=== PATIENT | female | born 1965 | race Two or more races ===

== ENCOUNTER 2016-11-01 07:14 | Inpatient (IN) | payer OTHER ==
[~2016-11-01] VITALS: Ht 182.9 cm; Wt 90.7 kg
[~2016-11-01 07:14] MED LIST: ASPI81TA2 PO; BUPR150T10 PO; ETHY1TAB10 PO; METO25TA PO; ONDA4TAB5 PO; OXYC30TA86 PO; SUMA100T PO; VENL150C58 PO
[2016-11-01] MEDS ORDERED: IV SET PRIMARY 1 EA INFUS.SET MC ONE ×2 (07:47→09:56)
[2016-11-01] MEDS ORDERED: IV NS 0.9% 1,000 ML ONE (07:47)
[2016-11-01] MEDS ORDERED: ALBUTEROL FS 2.5 MG/3 ML VIAL.NEB NEB ONE (08:00)
[2016-11-01] MEDS ORDERED: OSELTAMIVIR PHOSPHATE 75 MG CAPSULE PO ONE (08:00)
[2016-11-01] MEDS ORDERED: IV NS 0.9% 1,000 ML BAG IV ONE ×2 (08:00→10:00)
[2016-11-01] MEDS ORDERED: OSELTAMIVIR PHOSPHATE 75 MG CAPSULE ONE (08:13)
[2016-11-01] MEDS ORDERED: ALBUTEROL FS 2.5 MG/3 ML VIAL.NEB ONE (08:13)
[2016-11-01] MEDS ORDERED: CEFTRIAXONE 1GM BAG (ER ONLY) 50 ML IV ONE ×2 (09:00→09:13)
[2016-11-01] MEDS ORDERED: AZITHROMYCIN 500 MG in IV D5W 250 ML IV ONE (09:00)
[2016-11-01] MEDS ORDERED: IV SET PRIMARY PUMP SET 1 EA INFUS.SET MC ONE ×3 (09:13→09:57)
[2016-11-01 09:23] LABS: BASOPHILS # (AUTO) 0.1 /CMM (0.0-0.2); BASOPHILS % (AUTO) 0.5 % (0.0-2.0); DIFF TOTAL % 100 %; EOSINOPHILS % (AUTO) 0.2 % (0.0-6.0); HEMATOCRIT 34 % (33-45); HEMOGLOBIN 11.2 g/dL (11.5-14.8); LYMPHOCYTES # (AUTO) 0.5 /CMM (0.8-4.8); LYMPHOCYTES % (AUTO) 3.8 % (20.0-44.0); MEAN CORPUSCULAR HEMOGLOBIN 29 PG (26.0-33.0); MEAN CORPUSCULAR HGB CONC 33 g/dl (31.0-36.0); MEAN CORPUSCULAR VOLUME 88 fL (82-100); MONOCYTES # (AUTO) 0.4 /CMM (0.1-1.30); NEUTROPHILS % (AUTO) 92.5 % (43.0-81.0); PLATELET COUNT (AUTO) 223 /CMM (150-450); RED BLOOD CELL COUNT(AUTO) 3.83 MIL/uL (4.0-5.2)
[2016-11-01 09:36] LABS: CALCIUM, SERUM 7.7 mg/dL (8.5-10.1); CREATININE 1.5 mg/dL (0.6-1.3)
[2016-11-01] MEDS ORDERED: TRAZ-144 PO (09:36)
[2016-11-01] MEDS ORDERED: ASPI81TA2 PO (09:36)
[2016-11-01] MEDS ORDERED: HYDR12.55 PO (09:36)
[2016-11-01] MEDS ORDERED: LEVO25TA9 PO (09:36)
[2016-11-01] MEDS ORDERED: BUPR-51 PO (09:36)
[2016-11-01] MEDS ORDERED: CARI350T PO (09:36)
[2016-11-01] MEDS ORDERED: FERR325T28 PO (09:36)
[2016-11-01] MEDS ORDERED: VENL75CA56 PO (09:36)
[2016-11-01] MEDS ORDERED: CHOL100044 PO (09:36)
[2016-11-01] MEDS ORDERED: OXYC40TA57 PO (09:36)
[2016-11-01] MEDS ORDERED: POTASSIUM CL. PREMIX PERIPHER. 200 ML ONE (09:56)
[2016-11-01] MEDS ORDERED: IV NS 0.9% 2,000 ML ONE (09:56)
[2016-11-01] MEDS ORDERED: POTASSIUM CHLORIDE 10 MEQ/50 ML PREMIXED IVPB FOR PERIPHERAL LINE IV ONE (10:00)
[2016-11-01 10:25] LABS: KETONES,URINE Trace (NEGATIVE); LEUKOCYTE ESTERASE ,URINE Negative (NEGATIVE); PH,URINE 5.5 (5.0-8.0)
[2016-11-01 10:27] LABS: ADD UA MICROSCOPIC YES
[2016-11-01 10:29] LABS: LACTIC ACID 3.3 mmol/L (0.4-2.0)
[2016-11-01 10:35] LABS: ADD URINE CULTURE NO
[2016-11-01 11:02] LABS: *LACTIC ACID REFLEX FLAG YES
[2016-11-01] MEDS ORDERED: IV NS 0.9% 1,000 ML IV PRN (11:16)
[2016-11-01 11:26] VITALS: BP 164/101
[2016-11-01] MEDS ORDERED: MAG HYDROX/AL HYDROX/SIMETH 30 ML UDC PO PRN (11:30)
[2016-11-01] MEDS ORDERED: SUMATRIPTAN SUCCINATE 100 MG TABLET PO PRN (11:30)
[2016-11-01] MEDS ORDERED: MAGNESIUM HYDROXIDE 30 ML UDC PO PRN (11:30)
[2016-11-01] MEDS ORDERED: Z GUARD REMEDY 2 OZ OINT TP PRN (11:30)
[2016-11-01] MEDS ORDERED: ONDANSETRON HCL/PF 4 MG/2 ML VIAL IVP PRN (11:30)
[2016-11-01] MEDS: CARISOPRODOL 350 MG TABLET PO SCH ×2 (12:12→17:12)
[2016-11-01] MEDS: FERROUS SULFATE (325 MG) 325 MG/TAB TABLET PO SCH (12:12)
[2016-11-01] MEDS: ASPIRIN 81 MG TAB.CHEW PO SCH (12:12)
[2016-11-01] MEDS: BUPROPION XL 150 MG TAB.ER.24 PO SCH (12:12)
[2016-11-01] MEDS: HYDROCODONE/APAP 5/325MG 1 EACH TABLET PO PRN (12:12)
[2016-11-01] MEDS: PANTOPRAZOLE 40 MG TABLET.DR PO SCH (12:12)
[2016-11-01] MEDS: TRAZODONE 50 MG TABLET PO SCH ×2 (12:16→21:23)
[2016-11-01] MEDS: LEVOTHYROXINE SODIUM 25 MCG TABLET PO SCH (12:16)
[2016-11-01] MEDS: VENLAFAXINE XR 75 MG CAP.SR.24H PO SCH (12:16)
[2016-11-01] MEDS: CHOLECALCIFEROL 1,000 UNIT TABLET (VIT D3) PO SCH (12:17)
[2016-11-01] MEDS: METOPROLOL SUCCINATE 50 MG TAB.SR.24H PO SCH (12:17)
[2016-11-01] MEDS: HYDROCHLOROTHIAZIDE 25 MG TABLET PO SCH (12:17)
[2016-11-01 12:24] LABS: BILIRUBIN,TOTAL 0.2 mg/dL (0.2-1.0)
[2016-11-01] MEDS: oxyCODONE HCL SR 40MG TAB.SR.12H PO SCH ×2 (12:34→21:23)
[2016-11-01] MEDS: ACETAMINOPHEN 325 MG TABLET PO PRN (15:37)
[2016-11-01 16:00] VITALS: BP 132/62
[2016-11-01] MEDS: GUAIFENESIN/D-METHORPHAN HB 5 ML UDC PO PRN (17:12)
[2016-11-01 20:00] VITALS: BP 125/70
[2016-11-01 21:04] VITALS: BP 125/70
[2016-11-02] MEDS ORDERED: IV NS 0.9% 1,000 ML ONE (02:01)
[2016-11-02] MEDS: IV NS 0.9% 1,000 ML IV PRN ×2 (02:05→21:37)
[2016-11-02] MEDS: GUAIFENESIN/D-METHORPHAN HB 5 ML UDC PO PRN ×2 (04:24→20:04)
[2016-11-02] MEDS: oxyCODONE HCL SR 40MG TAB.SR.12H PO SCH ×3 (04:24→21:32)
[2016-11-02 07:16] LABS: BASOPHILS % (AUTO) 0.2 % (0.0-2.0); DIFF TOTAL % 100 %; EOSINOPHILS # (AUTO) 0.3 /CMM (0.0-0.7); EOSINOPHILS % (AUTO) 2.9 % (0.0-6.0); HEMATOCRIT 27 % (33-45); HEMOGLOBIN 9.1 g/dL (11.5-14.8); LYMPHOCYTES # (AUTO) 1.1 /CMM (0.8-4.8); LYMPHOCYTES % (AUTO) 10.5 % (20.0-44.0); MEAN CORPUSCULAR HEMOGLOBIN 30 PG (26.0-33.0); MEAN CORPUSCULAR HGB CONC 34 g/dl (31.0-36.0); MEAN CORPUSCULAR VOLUME 89 fL (82-100); MONOCYTES # (AUTO) 0.5 /CMM (0.1-1.30); MONOCYTES % (AUTO) 4.3 % (2.0-12.0); NEUTROPHILS # (AUTO) 8.6 /CMM (1.8-8.9); NEUTROPHILS % (AUTO) 82.1 % (43.0-81.0); PLATELET COUNT (AUTO) 199 /CMM (150-450); RED BLOOD CELL COUNT(AUTO) 3.08 MIL/uL (4.0-5.2); WHITE BLOOD COUNT (AUTO) 10.5 K/uL (4.3-11.0)
[2016-11-02 07:30] LABS: ALBUMIN 1.9 g/dL (3.4-5.0); BILIRUBIN,TOTAL 0.2 mg/dL (0.2-1.0); CALCIUM, SERUM 7.1 mg/dL (8.5-10.1); CREATININE 1.4 mg/dL (0.6-1.3); PHOSPHORUS 2.6 mg/dL (2.5-4.9); POTASSIUM 3.7 mmol/L (3.5-5.1); TOTAL PROTEIN, SERUM 5.7 g/dL (6.4-8.2)
[2016-11-02 08:00] VITALS: BP 115/89
[2016-11-02] MEDS: AZITHROMYCIN 500 MG in IV D5W 250 ML IV SCH (08:15)
[2016-11-02] MEDS: VENLAFAXINE XR 75 MG CAP.SR.24H PO SCH (08:32)
[2016-11-02] MEDS: CHOLECALCIFEROL 1,000 UNIT TABLET (VIT D3) PO SCH (08:36)
[2016-11-02] MEDS: HYDROCHLOROTHIAZIDE 25 MG TABLET PO SCH (08:36)
[2016-11-02] MEDS: PANTOPRAZOLE 40 MG TABLET.DR PO SCH (08:36)
[2016-11-02] MEDS: CARISOPRODOL 350 MG TABLET PO SCH ×2 (08:37→17:07)
[2016-11-02] MEDS: LEVOTHYROXINE SODIUM 25 MCG TABLET PO SCH (08:39)
[2016-11-02] MEDS: FERROUS SULFATE (325 MG) 325 MG/TAB TABLET PO SCH (08:40)
[2016-11-02] MEDS: METOPROLOL SUCCINATE 50 MG TAB.SR.24H PO SCH (08:40)
[2016-11-02] MEDS: BUPROPION XL 150 MG TAB.ER.24 PO SCH (08:40)
[2016-11-02] MEDS: ASPIRIN 81 MG TAB.CHEW PO SCH (08:41)
[2016-11-02] MEDS: CEFTRIAXONE 1 G in IV D5W 50 ML IV SCH (08:44)
[2016-11-02] MEDS ORDERED: SECONDARY IV SET 1 EA INFUS.SET MC ONE (09:48)
[2016-11-02] MEDS: Magnesium 1GM/D5W 100ML PREMIX 100 ML IV SCH ×4 (11:00→14:00)
[2016-11-02 12:57] VITALS: BP 115/89
[2016-11-02 16:00] VITALS: BP 124/84
[2016-11-02] MEDS: ACETYLCYSTEINE 10% SOLN 400 MG/4 ML VIAL NEB SCH (16:30)
[2016-11-02 20:00] VITALS: BP 136/87
[2016-11-02] MEDS: TRAZODONE 50 MG TABLET PO SCH (21:32)
[2016-11-03] MEDS: ACETYLCYSTEINE 10% SOLN 400 MG/4 ML VIAL NEB SCH ×4 (01:41→19:46)
[2016-11-03] MEDS: oxyCODONE HCL SR 40MG TAB.SR.12H PO SCH ×3 (05:13→20:23)
[2016-11-03] MEDS: LEVOTHYROXINE SODIUM 25 MCG TABLET PO SCH (06:36)
[2016-11-03] MEDS: PANTOPRAZOLE 40 MG TABLET.DR PO SCH (06:36)
[2016-11-03 08:00] VITALS: BP 131/78
[2016-11-03] MEDS: FERROUS SULFATE (325 MG) 325 MG/TAB TABLET PO SCH (08:24)
[2016-11-03] MEDS: ASPIRIN 81 MG TAB.CHEW PO SCH (08:24)
[2016-11-03] MEDS: CARISOPRODOL 350 MG TABLET PO SCH ×2 (08:24→17:15)
[2016-11-03] MEDS: HYDROCHLOROTHIAZIDE 25 MG TABLET PO SCH (08:25)
[2016-11-03] MEDS: BUPROPION XL 150 MG TAB.ER.24 PO SCH (08:25)
[2016-11-03] MEDS: CHOLECALCIFEROL 1,000 UNIT TABLET (VIT D3) PO SCH (08:26)
[2016-11-03] MEDS: VENLAFAXINE XR 75 MG CAP.SR.24H PO SCH (08:27)
[2016-11-03] MEDS: METOPROLOL SUCCINATE 50 MG TAB.SR.24H PO SCH (08:27)
[2016-11-03] MEDS: GUAIFENESIN/D-METHORPHAN HB 5 ML UDC PO PRN ×2 (08:29→20:22)
[2016-11-03] MEDS ORDERED: SECONDARY IV SET 1 EA INFUS.SET MC ONE ×2 (09:58→11:26)
[2016-11-03] MEDS: AZITHROMYCIN 500 MG in IV D5W 250 ML IV SCH (09:58)
[2016-11-03] MEDS: CEFTRIAXONE 1 G in IV D5W 50 ML IV SCH (11:36)
[2016-11-03] MEDS: ACETAMINOPHEN 325 MG TABLET PO PRN (11:38)
[2016-11-03] MEDS: ALBUTEROL FS 2.5 MG/0.5 ML VIAL.NEB NEB SCH ×4 (11:54→22:33)
[2016-11-03 16:00] VITALS: BP 110/68
[2016-11-03] MEDS: IV NS 0.9% 1,000 ML IV PRN (17:15)
[2016-11-03] MEDS: LACTOBACILLUS RHAMNOSUS GG 1 EACH CAP.SPRINK PO SCH (17:15)
[2016-11-03 20:00] VITALS: BP 111/71
[2016-11-03] MEDS: ZOLPIDEM TARTRATE 5 MG TABLET PO PRN (20:22)
[2016-11-03] MEDS: TRAZODONE 50 MG TABLET PO SCH (22:00)
[2016-11-04] MEDS: ACETYLCYSTEINE 10% SOLN 400 MG/4 ML VIAL NEB SCH ×4 (01:30→19:33)
[2016-11-04] MEDS: ALBUTEROL FS 2.5 MG/0.5 ML VIAL.NEB NEB SCH ×6 (03:15→23:19)
[2016-11-04] MEDS: oxyCODONE HCL SR 40MG TAB.SR.12H PO SCH ×3 (05:36→20:17)
[2016-11-04 08:00] VITALS: BP 126/85
[2016-11-04] MEDS: HYDROCHLOROTHIAZIDE 25 MG TABLET PO SCH (08:12)
[2016-11-04] MEDS: CHOLECALCIFEROL 1,000 UNIT TABLET (VIT D3) PO SCH (08:12)
[2016-11-04] MEDS: LACTOBACILLUS RHAMNOSUS GG 1 EACH CAP.SPRINK PO SCH ×2 (08:12→16:34)
[2016-11-04] MEDS: METOPROLOL SUCCINATE 50 MG TAB.SR.24H PO SCH (08:13)
[2016-11-04] MEDS: VENLAFAXINE XR 75 MG CAP.SR.24H PO SCH (08:13)
[2016-11-04] MEDS: PANTOPRAZOLE 40 MG TABLET.DR PO SCH (08:13)
[2016-11-04] MEDS: ASPIRIN 81 MG TAB.CHEW PO SCH (08:13)
[2016-11-04] MEDS: CARISOPRODOL 350 MG TABLET PO SCH ×2 (08:13→16:34)
[2016-11-04] MEDS: LEVOTHYROXINE SODIUM 25 MCG TABLET PO SCH (08:13)
[2016-11-04] MEDS: BUPROPION XL 150 MG TAB.ER.24 PO SCH (08:13)
[2016-11-04] MEDS: FERROUS SULFATE (325 MG) 325 MG/TAB TABLET PO SCH (08:13)
[2016-11-04 08:14] VITALS: BP 126/85
[2016-11-04] MEDS: ZOVIA PO SCH (08:16)
[2016-11-04] MEDS: CEFTRIAXONE 1 G in IV D5W 50 ML IV SCH (08:22)
[2016-11-04] MEDS: AZITHROMYCIN 500 MG in IV D5W 250 ML IV SCH (10:49)
[2016-11-04 16:00] VITALS: BP 163/98
[2016-11-04] MEDS: GUAIFENESIN/D-METHORPHAN HB 5 ML UDC PO PRN (19:12)
[2016-11-04 20:00] VITALS: BP 142/89
[2016-11-04] MEDS: ZOLPIDEM TARTRATE 5 MG TABLET PO PRN (20:15)
[2016-11-04 20:20] VITALS: BP 142/89
[2016-11-04] MEDS: IV NS 0.9% 1,000 ML IV PRN (21:04)
[2016-11-04] MEDS: TRAZODONE 50 MG TABLET PO SCH (21:05)
[2016-11-05] MEDS: ACETYLCYSTEINE 10% SOLN 400 MG/4 ML VIAL NEB SCH ×4 (01:30→19:27)
[2016-11-05] MEDS: ALBUTEROL FS 2.5 MG/0.5 ML VIAL.NEB NEB SCH ×6 (03:19→23:30)
[2016-11-05] MEDS: oxyCODONE HCL SR 40MG TAB.SR.12H PO SCH ×3 (04:42→22:08)
[2016-11-05 08:00] VITALS: BP 139/76
[2016-11-05] MEDS: CHOLECALCIFEROL 1,000 UNIT TABLET (VIT D3) PO SCH (08:21)
[2016-11-05] MEDS: FERROUS SULFATE (325 MG) 325 MG/TAB TABLET PO SCH (08:21)
[2016-11-05] MEDS: ZOVIA PO SCH (08:21)
[2016-11-05] MEDS: CEFTRIAXONE 1 G in IV D5W 50 ML IV SCH (08:21)
[2016-11-05] MEDS: ASPIRIN 81 MG TAB.CHEW PO SCH (08:22)
[2016-11-05] MEDS: LEVOTHYROXINE SODIUM 25 MCG TABLET PO SCH (08:22)
[2016-11-05] MEDS: VENLAFAXINE XR 75 MG CAP.SR.24H PO SCH (08:22)
[2016-11-05] MEDS: PANTOPRAZOLE 40 MG TABLET.DR PO SCH (08:22)
[2016-11-05] MEDS: BUPROPION XL 150 MG TAB.ER.24 PO SCH (08:22)
[2016-11-05] MEDS: LACTOBACILLUS RHAMNOSUS GG 1 EACH CAP.SPRINK PO SCH ×2 (08:22→17:11)
[2016-11-05] MEDS: CARISOPRODOL 350 MG TABLET PO SCH ×2 (08:22→17:11)
[2016-11-05] MEDS: METOPROLOL SUCCINATE 50 MG TAB.SR.24H PO SCH (08:23)
[2016-11-05] MEDS: HYDROCHLOROTHIAZIDE 25 MG TABLET PO SCH (08:23)
[2016-11-05 08:35] VITALS: BP 139/76
[2016-11-05] MEDS: AZITHROMYCIN 500 MG in IV D5W 250 ML IV SCH (10:36)
[2016-11-05] MEDS: IV NS 0.9% 1,000 ML IV PRN (10:37)
[2016-11-05] MEDS: GUAIFENESIN/D-METHORPHAN HB 5 ML UDC PO PRN ×2 (12:34→20:10)
[2016-11-05] MEDS ORDERED: TUBERCULIN,PURIF.PROT.DERIV. 5 TU/0.1 ML VIAL ID ONE (17:00)
[2016-11-05 20:00] VITALS: BP_SYST 132; BP_DIAS 83; BP_DIAS 85
[2016-11-05] MEDS: HYDROCODONE/APAP 5/325MG 1 EACH TABLET PO PRN (20:11)
[2016-11-05] MEDS: TRAZODONE 50 MG TABLET PO SCH (22:08)
[2016-11-06] VITALS (7 sets, daily range): BP systolic 135–148; BP diastolic 85–93
[2016-11-06] MEDS: ACETYLCYSTEINE 10% SOLN 400 MG/4 ML VIAL NEB SCH ×4 (01:30→19:30)
[2016-11-06] MEDS: ALBUTEROL FS 2.5 MG/0.5 ML VIAL.NEB NEB SCH ×6 (03:30→23:25)
[2016-11-06] MEDS: oxyCODONE HCL SR 40MG TAB.SR.12H PO SCH ×3 (05:43→20:12)
[2016-11-06] MEDS: IV NS 0.9% 1,000 ML IV PRN (05:48)
[2016-11-06] MEDS: ZOVIA PO SCH (09:00)
[2016-11-06] MEDS ORDERED: AZITHROMYCIN 250 MG TABLET PO SCH (09:00)
[2016-11-06] MEDS: CEFTRIAXONE 1 G in IV D5W 50 ML IV SCH (09:25)
[2016-11-06] MEDS: CHOLECALCIFEROL 1,000 UNIT TABLET (VIT D3) PO SCH (09:26)
[2016-11-06] MEDS: LACTOBACILLUS RHAMNOSUS GG 1 EACH CAP.SPRINK PO SCH ×2 (09:27→16:05)
[2016-11-06] MEDS: PANTOPRAZOLE 40 MG TABLET.DR PO SCH (09:27)
[2016-11-06] MEDS: ASPIRIN 81 MG TAB.CHEW PO SCH (09:27)
[2016-11-06] MEDS: VENLAFAXINE XR 75 MG CAP.SR.24H PO SCH (09:27)
[2016-11-06] MEDS: CARISOPRODOL 350 MG TABLET PO SCH ×2 (09:28→16:05)
[2016-11-06] MEDS: LEVOTHYROXINE SODIUM 25 MCG TABLET PO SCH (09:28)
[2016-11-06] MEDS: BUPROPION XL 150 MG TAB.ER.24 PO SCH (09:28)
[2016-11-06] MEDS: METOPROLOL SUCCINATE 50 MG TAB.SR.24H PO SCH (09:29)
[2016-11-06] MEDS: HYDROCHLOROTHIAZIDE 25 MG TABLET PO SCH (09:29)
[2016-11-06] MEDS: FERROUS SULFATE (325 MG) 325 MG/TAB TABLET PO SCH (09:31)
[2016-11-06] MEDS: HYDROCODONE/APAP 5/325MG 1 EACH TABLET PO PRN (15:36)
[2016-11-06] MEDS: TRAZODONE 50 MG TABLET PO SCH (22:10)
[2016-11-06] MEDS: ZOLPIDEM TARTRATE 5 MG TABLET PO PRN (22:14)
[2016-11-07] MEDS: ACETYLCYSTEINE 10% SOLN 400 MG/4 ML VIAL NEB SCH ×4 (01:30→19:30)
[2016-11-07] MEDS: ALBUTEROL FS 2.5 MG/0.5 ML VIAL.NEB NEB SCH ×6 (03:30→23:17)
[2016-11-07] MEDS ORDERED: IV NS 0.9% 1,000 ML ONE (05:07)
[2016-11-07] MEDS: IV NS 0.9% 1,000 ML IV PRN (05:15)
[2016-11-07] MEDS: oxyCODONE HCL SR 40MG TAB.SR.12H PO SCH ×3 (05:16→21:21)
[2016-11-07 08:00] VITALS: BP 155/96
[2016-11-07] MEDS: CEFTRIAXONE 2 G in IV D5W 50 ML IV SCH (08:42)
[2016-11-07] MEDS: CHOLECALCIFEROL 1,000 UNIT TABLET (VIT D3) PO SCH (08:43)
[2016-11-07] MEDS: LACTOBACILLUS RHAMNOSUS GG 1 EACH CAP.SPRINK PO SCH ×2 (08:43→16:07)
[2016-11-07] MEDS: FERROUS SULFATE (325 MG) 325 MG/TAB TABLET PO SCH (08:43)
[2016-11-07] MEDS: PANTOPRAZOLE 40 MG TABLET.DR PO SCH (08:44)
[2016-11-07] MEDS: LEVOTHYROXINE SODIUM 25 MCG TABLET PO SCH (08:44)
[2016-11-07] MEDS: VENLAFAXINE XR 75 MG CAP.SR.24H PO SCH (08:44)
[2016-11-07] MEDS: BUPROPION XL 150 MG TAB.ER.24 PO SCH (08:44)
[2016-11-07] MEDS: ASPIRIN 81 MG TAB.CHEW PO SCH (08:44)
[2016-11-07] MEDS: METOPROLOL SUCCINATE 50 MG TAB.SR.24H PO SCH (08:45)
[2016-11-07] MEDS: HYDROCHLOROTHIAZIDE 25 MG TABLET PO SCH (08:45)
[2016-11-07] MEDS: CARISOPRODOL 350 MG TABLET PO SCH ×2 (08:45→16:07)
[2016-11-07] MEDS: ZOVIA PO SCH (08:46)
[2016-11-07 16:00] VITALS: BP_SYST 135; BP_SYST 155; BP_DIAS 88
[2016-11-07] MEDS: HYDROCODONE/APAP 5/325MG 1 EACH TABLET PO PRN (16:02)
[2016-11-07 18:00] VITALS: BP 155/88
[2016-11-07 20:00] VITALS: BP 143/93
[2016-11-07] MEDS: TRAZODONE 50 MG TABLET PO SCH (22:33)
[2016-11-08] MEDS: ACETYLCYSTEINE 10% SOLN 400 MG/4 ML VIAL NEB SCH ×2 (01:30→07:24)
[2016-11-08] MEDS: ALBUTEROL FS 2.5 MG/0.5 ML VIAL.NEB NEB SCH ×3 (03:30→10:43)
[2016-11-08] MEDS: oxyCODONE HCL SR 40MG TAB.SR.12H PO SCH ×2 (05:17→13:00)
[2016-11-08 07:18] LABS: CALCIUM, SERUM 8.3 mg/dL (8.5-10.1); CREATININE 1.3 mg/dL (0.6-1.3); POTASSIUM 4.5 mmol/L (3.5-5.1)
[2016-11-08 07:29] LABS: BASOPHILS % (AUTO) 0.6 % (0.0-2.0); EOSINOPHILS # (AUTO) 0.4 /CMM (0.0-0.7); EOSINOPHILS % (AUTO) 5.3 % (0.0-6.0); HEMATOCRIT 28 % (33-45); HEMOGLOBIN 9.3 g/dL (11.5-14.8); LYMPHOCYTES # (AUTO) 1.8 /CMM (0.8-4.8); LYMPHOCYTES % (AUTO) 26.6 % (20.0-44.0); MEAN CORPUSCULAR HEMOGLOBIN 30 PG (26.0-33.0); MEAN CORPUSCULAR HGB CONC 34 g/dl (31.0-36.0); MEAN CORPUSCULAR VOLUME 87 fL (82-100); MONOCYTES # (AUTO) 0.4 /CMM (0.1-1.30); MONOCYTES % (AUTO) 5.6 % (2.0-12.0); NEUTROPHILS # (AUTO) 4.1 /CMM (1.8-8.9); NEUTROPHILS % (AUTO) 61.9 % (43.0-81.0); PLATELET COUNT (AUTO) 405 /CMM (150-450); RED BLOOD CELL COUNT(AUTO) 3.14 MIL/uL (4.0-5.2); WHITE BLOOD COUNT (AUTO) 6.7 K/uL (4.3-11.0)
[2016-11-08 08:00] VITALS: BP 148/95
[2016-11-08] MEDS: FERROUS SULFATE (325 MG) 325 MG/TAB TABLET PO SCH (08:12)
[2016-11-08] MEDS: ASPIRIN 81 MG TAB.CHEW PO SCH (08:12)
[2016-11-08] MEDS: CARISOPRODOL 350 MG TABLET PO SCH (08:12)
[2016-11-08] MEDS: BUPROPION XL 150 MG TAB.ER.24 PO SCH (08:12)
[2016-11-08] MEDS: VENLAFAXINE XR 75 MG CAP.SR.24H PO SCH (08:13)
[2016-11-08] MEDS: CHOLECALCIFEROL 1,000 UNIT TABLET (VIT D3) PO SCH (08:13)
[2016-11-08 08:14] VITALS: BP 148/95
[2016-11-08] MEDS: LEVOTHYROXINE SODIUM 25 MCG TABLET PO SCH (08:14)
[2016-11-08] MEDS: PANTOPRAZOLE 40 MG TABLET.DR PO SCH (08:14)
[2016-11-08] MEDS: HYDROCHLOROTHIAZIDE 25 MG TABLET PO SCH (08:14)
[2016-11-08] MEDS: METOPROLOL SUCCINATE 50 MG TAB.SR.24H PO SCH (08:14)
[2016-11-08] MEDS: LACTOBACILLUS RHAMNOSUS GG 1 EACH CAP.SPRINK PO SCH (08:15)
[2016-11-08] MEDS: ZOVIA PO SCH (08:19)
[2016-11-08] MEDS: CEFTRIAXONE 2 G in IV D5W 50 ML IV SCH (09:52)
[2016-11-08] MEDS: HYDROCODONE/APAP 5/325MG 1 EACH TABLET PO PRN (11:58)
== END 2016-11-08 16:51 | disposition home or self-care (01) | DRG 871 ==
LOC: ER 07:17 → MED 10:33
PROVIDERS: ADMIT Internal Medicine; ATTEND Internal Medicine
DX: A41.9 Sepsis, unspecified organism (principal); J15.9 Unspecified bacterial pneumonia; N17.0 Acute kidney failure with tubular necrosis; J13 Pneumonia due to Streptococcus pneumoniae; E87.2 Acidosis; N18.4 Chronic kidney disease, stage 4 (severe); G89.29 Other chronic pain; G43.909 Migraine, unspecified, not intractable, without status migrainosus; D64.9 Anemia, unspecified; E66.9 Obesity, unspecified; E83.42 Hypomagnesemia; F32.9 Major depressive disorder, single episode, unspecified; I12.9 Hypertensive chronic kidney disease with stage 1 through stage 4 chronic kidney disease, or unspecified chronic kidney disease; K59.00 Constipation, unspecified; Z86.73 Personal history of transient ischemic attack (TIA), and cerebral infarction without residual deficits; Z87.442 Personal history of urinary calculi; Z90.5 Acquired absence of kidney; Z98.84 Bariatric surgery status; M54.9 Dorsalgia, unspecified; J84.10 Pulmonary fibrosis, unspecified; R65.20 Severe sepsis without septic shock; Z68.27 Body mass index [BMI] 27.0-27.9, adult
CPT/HCPCS: 36415; 71010-TC; 71100-TC; 71250-TC; 80048-TC; 80053-TC; 80061-TC; 81000-TC; 82247-TC; 82248-TC; 83605-TC; 83735-TC; 84100-TC; 85025-TC; 86580-TC; 87040-TC; 87081-TC; 87186-TC; 87400; A4606; J0456; J0696; J3475; J3480; J7030; J7060; Z7610

== ENCOUNTER 2017-10-14 06:00 | Emergency (ER) | payer OTHER ==
[~2017-10-14] VITALS: Ht 182.9 cm; Wt 106.1 kg
[~2017-10-14 06:00] MED LIST changes: +ASPI-1169 PO; -ASPI81TA2 PO; +BUPR-51 PO; -BUPR150T10 PO; +CARI350T PO; +CHOL100044 PO; +FERR325T28 PO; +HYDR12.55 PO; +LEVO25TA9 PO; +METO-356 PO; -METO25TA PO; -OXYC30TA86 PO; +OXYC40TA57 PO; +TRAZ-144 PO; -VENL150C58 PO; +VENL75CA56 PO
--- NOTE | 2017-10-14 06:09 | NUR ---
PT TO ER BED 7. PT BIB RA FOR SYNCOPAL EPISODE, PT STATES SHE HIT THE LEFT SIDE OF HER FACE. PT STATES SHE HASN'T BEEN EATING BECAUSE SHE FELT LIKE SHE GAINED TOO MUCH WEIGHT RECENTLY. FAMILY MEMBER STATES PATIENT HAD A SYNCOPAL EPISODE 2 DAYS AGO WELL. PT PLACED IN A GOWN AND ON SUPERVISOR BLOOMING MILL. VSS/RESP EVEN UNLABORED/NAD NOTED/SKIN WARM AND DRY/DENIES N-V-D/AOX4. AWAITING MD ELLSWORTH.
--- NOTE | 2017-10-14 06:10 | NUR ---
AT BEDSIDE FOR EVAL.
--- NOTE | 2017-10-14 06:20 | NUR ---
18G IV TO L AC X 1 ATTEMPT USING ASEPTIC TECH, BLOOD HANDED OVER TO LAB AT THE BEDSIDE. IV FLUSHES EASILY WITH NS.
--- NOTE | 2017-10-14 06:28 | NUR ---
PT TO CT VIA STETCHER. VSS.
[2017-10-14 06:35] LABS: BASOPHILS % (AUTO) 0.3 % (0.0-2.0); EOSINOPHILS % (AUTO) 0.5 % (0.0-6.0); HEMATOCRIT 38 % (33-45); HEMOGLOBIN 12.5 g/dL (11.5-14.8); LYMPHOCYTES # (AUTO) 1.1 /CMM (0.8-4.8); LYMPHOCYTES % (AUTO) 13.1 % (20.0-44.0); MEAN CORPUSCULAR HEMOGLOBIN 31 PG (26.0-33.0); MEAN CORPUSCULAR HGB CONC 33 g/dl (31.0-36.0); MEAN CORPUSCULAR VOLUME 93 fL (82-100); MONOCYTES # (AUTO) 0.4 /CMM (0.1-1.30); NEUTROPHILS # (AUTO) 7.1 /CMM (1.8-8.9); NEUTROPHILS % (AUTO) 81.1 % (43.0-81.0); PLATELET COUNT (AUTO) 243 /CMM (150-450); RDW COEFFICIENT OF VARIATION 13.1 (11.5-15.0); RED BLOOD CELL COUNT(AUTO) 4.07 MIL/uL (4.0-5.2); WHITE BLOOD COUNT (AUTO) 8.7 K/uL (4.3-11.0)
[2017-10-14 06:54] LABS: INR 0.96 (0.87-1.13)
[2017-10-14] MEDS: IV NS 0.9% 1,000 ML BAG IV ONE (06:54)
--- NOTE | 2017-10-14 06:54 | NUR ---
PT BACK FROM CT.
[2017-10-14 07:01] LABS: ALANINE AMINOTRANSFERASE 16 U/L (12-78); ALKALINE PHOSPHATASE 73 U/L (46-116); ASPARTATE AMINOTRANSFERASE 15 U/L (15-37); BILIRUBIN,DIRECT 0.1 mg/dL (0.0-0.2); BILIRUBIN,TOTAL 0.2 mg/dL (0.2-1.0); CALCIUM, SERUM 8.6 mg/dL (8.5-10.1); CARBON DIOXIDE 24 mmol/L (21-32); CHLORIDE 110 mmol/L (98-107); CREATININE 1.7 mg/dL (0.6-1.3); GLUCOSE 95 mg/dL (74-106); SODIUM SERUM 144 mmol/L (136-145); TOTAL PROTEIN, SERUM 6.9 g/dL (6.4-8.2); UREA NITROGEN, BLOOD 19 mg/dL (7-18)
[2017-10-14 07:07] LABS: TROPONIN I < 0.017 ng/mL (0.00-0.056)
--- NOTE | 2017-10-14 07:36 | NUR ---
Patient discharged to home in stable condition. Written and verbal after care instructions given. Patient verbalizes understanding of instruction. IV removed. Catheter intact and site benign. Pressure and 4x4 applied to site. No bleeding noted. Left in stable condition, assisted to waiting room,.
[2017-10-14 07:38] VITALS: BP 135/72
== END 2017-10-14 07:42 | disposition home or self-care (01) ==
LOC: ER 06:02
DX: R55 Syncope and collapse (principal); R53.1 Weakness; R51 Headache; I10 Essential (primary) hypertension; F32.9 Major depressive disorder, single episode, unspecified; Z90.5 Acquired absence of kidney; Z79.82 Long term (current) use of aspirin
CPT/HCPCS: 36415; 70450; 71010; 80048; 80076; 82962; 84484; 85025; 85730; 93005; 96360; 99285; A4606; J7030 ×2; Z7610

== ENCOUNTER 2020-03-21 15:34 | Emergency (ER) | payer OTHER ==
[~2020-03-21] VITALS: Ht 182.9 cm; Wt 145.6 kg
[~2020-03-21 15:34] MED LIST changes: -METO-356 PO; +METO25TA4 PO; -TRAZ-144 PO; +TRAZ-182 PO
--- NOTE | 2020-03-21 15:34 | NUR ---
PT BIB RA 99 FROM HOME,SLURRED SPEECH,APHASIA AND WEAKNESS STARTED 1500H, PT IS AAOX4, NOT IN RESPIRATORY DISTRESS, HOOKED TO WOODS MANAGER, KEPT RESTED AND COMFORTABLE, WILL CONTINUE TO MONITOR.
--- NOTE | 2020-03-21 15:40 | NUR ---
PT IV LINE ESTABLISHED BLOOD DRAWN AND SENT TO LAB.
--- NOTE | 2020-03-21 15:44 | NUR ---
TECH AT BEDSIDE FOR BLOOD GLUCOSE AND EKG.
--- NOTE | 2020-03-21 15:50 | NUR ---
CODE STROKE ACTIVATED.
--- NOTE | 2020-03-21 15:51 | NUR ---
PT IS WHEELED TO CT SCAN VIA ACLS PROTOCOL.
[2020-03-21 15:58] LABS: BASOPHILS % (AUTO) 0.4 % (0.0-2.0); EOSINOPHILS % (AUTO) 1.4 % (0.0-6.0); HEMATOCRIT 34 % (33-45); HEMOGLOBIN 11.4 g/dL (11.5-14.8); LYMPHOCYTES # (AUTO) 0.8 /CMM (0.8-4.8); LYMPHOCYTES % (AUTO) 7.8 % (20.0-44.0); MEAN CORPUSCULAR HGB CONC 33 g/dl (31.0-36.0); MEAN CORPUSCULAR VOLUME 95 fL (82-100); MONOCYTES # (AUTO) 0.5 /CMM (0.1-1.30); NEUTROPHILS # (AUTO) 8.6 /CMM (1.8-8.9); NEUTROPHILS % (AUTO) 85.4 % (43.0-81.0); PLATELET COUNT (AUTO) 267 /CMM (150-450); RED BLOOD CELL COUNT(AUTO) 3.65 MIL/uL (4.0-5.2)
--- NOTE | 2020-03-21 16:02 | NUR ---
PATIENT BACK FROM CT SCAN, XRAY ALSO DONE.
--- NOTE | 2020-03-21 16:02 | NUR ---
PT IS BACK FROM THE CT SCAN.
[2020-03-21 16:03] LABS: CALCIUM, SERUM 7.4 mg/dL (8.5-10.1); CREATININE 2.3 mg/dL (0.6-1.3); POTASSIUM 3.6 mmol/L (3.5-5.1)
--- NOTE | 2020-03-21 16:08 | NUR ---
DR MEHTA NEURO TELESTROKE FOR EVAL
--- NOTE | 2020-03-21 16:12 | NUR ---
ALTEPLASE VERBALLY ORDERED BY DR MEHTA FROM TELESTROKE. CARRIED OUT IMMEDIATELY
--- NOTE | 2020-03-21 16:15 | NUR ---
PATIENT SIGNED CONSENT FOR TPA
--- NOTE | 2020-03-21 16:16 | NUR ---
ACTIVASE 90MG IN STERIL WATER FOR INJ 90ML: 9MG BOLUS GIVEN OVER 1MIN FOLLOWED BBY 81MG DRIP OVER 60MIN LAC 18G END TIME: 6189
--- NOTE | 2020-03-21 16:17 | NUR ---
Ashley davidson in [facility] - 03/21/20 at 1644 by KIRK PATIENT SIGNED CONSENT FOR TPA
[2020-03-21] MEDS ORDERED: ALTEPLASE 90 MG in WATER FOR INJECTION,STERILE 100 ML IV ONE (16:30)
[2020-03-21] MEDS ORDERED: WATER FOR INJECTION STERILE IV ONE (16:30)
[2020-03-21] MEDS ORDERED: ALTEPLASE 100 MG in WATER FOR INJECTION,STERILE 100 ML IV ONE (16:30)
[2020-03-21] MEDS ORDERED: ALTEPLASE IV ONE (16:30)
[2020-03-21] MEDS ORDERED: ALTEPLASE 100 MG/VIAL VIAL IV ONE (16:30)
--- NOTE | 2020-03-21 16:38 | NUR ---
[facility] TIM MADE AWARE THAT CTA CANNOT BE DONE BEC OF CREATININE 2.3.
--- NOTE | 2020-03-21 16:40 | NUR ---
TECH AT BEDSIDE FOR REPEAT EKG.
--- NOTE | 2020-03-21 16:56 | NUR ---
PATIENT IN BED, AWAKE AND ALERT, HOOKED TO MONITOR, ONGOING TPA AT 81ML/HR, STABLE VITAL SIGNS. HOOKED TO LOCATOR SPECIALIST, WILL CONTINUE TO MONITOR CLOSELY
--- NOTE | 2020-03-21 17:10 | NUR ---
NEURO CHECK DONE, NO CHANGES
--- NOTE | 2020-03-21 17:14 | NUR ---
MADE DR CARLSON AWARE OF BP 165/109MMHG, RECEIVED VERBAL ORDER OF LABETALOL 10MG IVP. CARRIED OUT
[2020-03-21] MEDS ORDERED: LABETALOL HCL IV 100MG VIAL ONE (17:18)
--- NOTE | 2020-03-21 17:23 | NUR ---
Note undone in ED - 03/21/20 at 1737 by KIRK Patient Tranfers to outside Facility. Physician: DR PEARL Location: [facility] Patient picked up by [facility] led by Stefany Rose RN VIVIAN in stable condition. Patient does not complain of headache and no bleeding noted.
[2020-03-21 17:30] VITALS: BP 149/94
[2020-03-21] MEDS ORDERED: LABETALOL 20 MG/4 ML VIAL IV ONE (17:30)
--- NOTE | 2020-03-21 17:32 | NUR ---
Patient Tranfers to outside Facility. Physician: DR PEARL Location: [facility] Patient picked up by [facility] [id number] led by Stefany Rose RN VIVIAN in stable condition,. Per patient, no complaint of headache. No signs of bleeding.
== END 2020-03-21 17:38 | disposition short-term general hospital (02) ==
LOC: ER 15:36
DX: I63.50 Cerebral infarction due to unspecified occlusion or stenosis of unspecified cerebral artery (principal); R79.89 Other specified abnormal findings of blood chemistry; N17.8 Other acute kidney failure; D64.9 Anemia, unspecified; M54.5 Low back pain; G89.29 Other chronic pain; E03.9 Hypothyroidism, unspecified; I10 Essential (primary) hypertension; E66.8 Other obesity; Z68.41 Body mass index [BMI] 40.0-44.9, adult; Z90.5 Acquired absence of kidney; Z98.890 Other specified postprocedural states; Z79.899 Other long term (current) drug therapy; Z79.82 Long term (current) use of aspirin
CPT/HCPCS: 36415; 70450; 71045; 80048; 80061; 82962; 84484; 85025; 85730; 93005 ×2; 96365; 96375; 99285; J2997; J3490 ×2; J7040

== ENCOUNTER 2020-04-12 08:26 | Inpatient (IN) | payer OTHER ==
[~2020-04-12] VITALS: Ht 182.9 cm; Wt 145.1 kg
--- NOTE | 2020-04-12 08:30 | NUR ---
ELLIE HERNANDEZ 99 FROM HOME,MOM CALLED 911 WHEN SHE NOTED THAT PATIENT CAN'T SAY WHAT SHE WANTED TO THIS MORNING,LKW="LAST NIGHT WHEN SHE WENT TO BED". ON ROOM AIR, BREATHING EVENLY AND UNLABORED. CONNECTED TO THE MONITOR AND PULSE OX. KEPT COMFORTABLE, WILL CONTINUE TO MONITOR ACCORDINGLY.
--- NOTE | 2020-04-12 08:44 | NUR ---
code stroke activated;see code stroke form
[2020-04-12] MEDS ORDERED: CT SWABBABLE VALVE TRANS SET 1 EA INFUS.SET MC ONE (08:47)
[2020-04-12] MEDS ORDERED: IOHEXOL-350 100 ML VIAL IV ONE (08:47)
[2020-04-12] MEDS ORDERED: IV NS 0.9% 250 ML IV ONE (08:48)
[2020-04-12 09:03] LABS: BASOPHILS # (AUTO) 0.1 /CMM (0.0-0.2); BASOPHILS % (AUTO) 0.8 % (0.0-2.0); EOSINOPHILS % (AUTO) 0.6 % (0.0-6.0); HEMATOCRIT 35 % (33-45); HEMOGLOBIN 11.3 g/dL (11.5-14.8); LYMPHOCYTES # (AUTO) 0.5 /CMM (0.8-4.8); LYMPHOCYTES % (AUTO) 4.1 % (20.0-44.0); MEAN CORPUSCULAR HGB CONC 32 g/dl (31.0-36.0); MEAN CORPUSCULAR VOLUME 96 fL (82-100); MONOCYTES # (AUTO) 0.5 /CMM (0.1-1.30); MONOCYTES % (AUTO) 3.5 % (2.0-12.0); NEUTROPHILS # (AUTO) 11.6 /CMM (1.8-8.9); PLATELET COUNT (AUTO) 394 /CMM (150-450); RED BLOOD CELL COUNT(AUTO) 3.65 MIL/uL (4.0-5.2); WHITE BLOOD COUNT (AUTO) 12.8 K/uL (4.3-11.0)
[2020-04-12] MEDS ORDERED: OXYC15TA2 PO (09:05)
[2020-04-12] MEDS ORDERED: TIZA4TAB5 PO (09:05)
[2020-04-12] MEDS ORDERED: HYDR-4075 PO (09:05)
[2020-04-12] MEDS ORDERED: BUPR-319 PO (09:05)
[2020-04-12] MEDS ORDERED: OLAN7.5T3 PO (09:05)
[2020-04-12] MEDS ORDERED: CYCL10TA9 PO (09:07)
[2020-04-12] MEDS ORDERED: DOCU100C36 PO (09:07)
[2020-04-12] MEDS ORDERED: ATOR40TA PO (09:07)
--- NOTE | 2020-04-12 09:18 | NUR ---
urine collected and sent to lab
[2020-04-12 09:24] LABS: CALCIUM, SERUM 8.5 mg/dL (8.5-10.1); CREATININE 2.8 mg/dL (0.6-1.3); POTASSIUM 3.8 mmol/L (3.5-5.1)
[2020-04-12 09:46] LABS: ALBUMIN 3.3 g/dL (3.4-5.0); BILIRUBIN,DIRECT 0.1 mg/dL (0.0-0.2); BILIRUBIN,TOTAL 0.2 mg/dL (0.2-1.0); TOTAL PROTEIN, SERUM 7.2 g/dL (6.4-8.2)
[2020-04-12] MEDS ORDERED: ASPIRIN 325 MG TABLET PO ONE (10:00)
[2020-04-12] MEDS ORDERED: ASPIRIN 325 MG TABLET ONE (10:00)
[2020-04-12] MEDS ORDERED: ACETAMINOPHEN 325 MG TABLET PO PRN (10:30)
[2020-04-12] MEDS ORDERED: ONDANSETRON HCL/PF 4 MG/2 ML VIAL IVP PRN (10:30)
[2020-04-12] MEDS ORDERED: MAG HYDROX/AL HYDROX/SIMETH 30 ML UDC PO PRN (10:30)
[2020-04-12] MEDS ORDERED: ASPIRIN 300 MG/SUPP.RECT RC ONE ×2 (10:30→10:36)
[2020-04-12] MEDS ORDERED: Z GUARD REMEDY 2 OZ OINT TP PRN (10:30)
[2020-04-12] MEDS ORDERED: MAGNESIUM HYDROXIDE 30 ML UDC PO PRN (10:30)
--- NOTE | 2020-04-12 10:44 | NUR ---
report given to Adriana GALVAN for adelaida
--- NOTE | 2020-04-12 11:25 | NUR ---
wheeled patient via gurney accompanied by RN and emt in no distress. Adriana RN at bedside to assume care.
[2020-04-12 12:00] VITALS: BP 176/107
[2020-04-12] MEDS ORDERED: BLOOD SUGAR DIAGNOSTIC 1 EACH STRIP IN SCH (12:00)
[2020-04-12] MEDS: BLOOD SUGAR DIAGNOSTIC 1 EACH STRIP IN SCH ×3 (12:06→21:58)
[2020-04-12] MEDS: IV NS 0.9% 1,000 ML IV SCH ×2 (12:06→21:09)
--- NOTE | 2020-04-12 12:08 | NUR ---
SW CONSULT: SW received consult for "Encephalopathy." SW consulted with COLE Wright who stated pt was recently transferred from ER and is not alert or oriented and has limited verbal skills and currently only nodes "yes or no." Per medical chart, code stroke was activate in ER. SW will attempt to see pt at a later time and complete PhQ-9 and provide stroke education.
--- NOTE | 2020-04-12 12:10 | NUR ---
SQUASH CENTRE MANAGEREMAIL MARKETING EXECUTIVE NOTES RECEIVED PT FROM ER DEPT IN A GURNEY, DROWSY. ABLE TO SCOOT TO THE BED, A/O X1, APPEARS CALM. PT TOLERATING RA, WITH NO ACUTE RESPIRATORY DISTRESS NOTED. PT NOT EXHIBITING PAIN OR DISCOMFORT AT THIS TIME. HOOKED TO TELE MONITORING SR 96 WITH OCCASIONAL 1ST DEGREE AVB, DENIES CHEST PAIN. STARTED IVF NS AT 100ML/HR TO L WRIST G20, INTACT AND OPERATIONAL.PT KEPT COMFORTABLE. CALL LIGHT KEPT WITHIN REACH. PT'S BED IN LOWEST, LOCKED POSITION, WITH SRX3. WILL CONTINUE PLAN OF CARE.
[2020-04-12] MEDS: hydrALAZINE HCL 10 MG TABLET PO SCH ×2 (13:00→16:42)
--- NOTE | 2020-04-12 13:06 | NUR ---
SAFETY DEPOSIT BOXES CUSTODIAN NOTES NOTIFIED MD/GA REGARDING NPO STATUS OF PT. IF OKAY TO CHANGE HYDRALAZINE TO IV FORM. AWAITING FOR RESPONSE.
--- NOTE | 2020-04-12 14:30 | NUR ---
GAS DERRICK OPERATOR NOTES PT SEEN AND EVALUATED BY DR. DERAS, PT STILL ALTERED AT THE TIME. MD REPORTED TO RN HE WITNESSED POSSIBLE SEIZURE OF THE PT AND WILL NOTIFY ADMITTING MD/GA. WILL CONTINUE TO MONITOR.
--- NOTE | 2020-04-12 15:40 | NUR ---
MOTTLE LAY UP OPERATOR NOTES PAGED /HARI AND SPOKE TO HIM THROUGH THE PHONE. ORDERED SITTER AND RESTRAINTS IF NEEDED. NO MEDS FOR SEDATION OR RELAXANT AT THIS TIME. BP AT 178/80 HR90, STATED OKAY FOR NOW, NO PRN MEDICINE TO GIVE. ALSO, FOR TROPONIN RESULTED 0.104, NO ORDERS AT THIS TIME. WILL CONTINUE TO MONITOR.
[2020-04-12 16:00] VITALS: BP 154/107
[2020-04-12] MEDS: DOCUSATE SODIUM 100 MG CAPSULE PO SCH (16:45)
[2020-04-12] MEDS: CYCLOBENZAPRINE 10 MG TABLET PO SCH (16:46)
--- NOTE | 2020-04-12 18:41 | NUR ---
VP CORPORATE PARTNERSHIPS NOTES PT REMAINS IN BED, INTERMITTENTLY DOZING OFF, A/O X1, APPEARS CALM. PT TOLERATING RA, WITH NO ACUTE RESPIRATORY DISTRESS NOTED. PT NOT EXHIBITING PAIN OR DISCOMFORT AT THIS TIME. ON TELE MONITORING SR 90 WITH OCCASIONAL 1ST DEGREE AVB, DENIES CHEST PAIN. IVF NS AT 100ML/HR TO LEFT HAND G22, INTACT AND OPERATIONAL. CALL LIGHT KEPT WITHIN REACH. PT'S BED IN LOWEST, LOCKED POSITION, WITH SRX3. WILL ENDORSE TO INCOMING NIGHT NURSE FOR CRISTINA.
--- NOTE | 2020-04-12 19:00 | NUR ---
rotary bar operator opening notes Received Pt from morning nurse. Pt is alert and orientedX1. Pt is resting in bed comfortably. Respiration is normal in room air. No SOB. No S/S of distress noted. Tele monitor showed SR. IV sites at L hand # 22 is clean, intact and infusing well NS@ 100ml/hr. Safety precautions is maintained. Bed at low position, brakes locked, side rails upX2 and call light is within reach. Will continue to monitor.
[2020-04-12 20:00] VITALS: BP 175/115
--- NOTE | 2020-04-12 20:50 | NUR ---
property investor notes Informed and notified ROOSEVELT Alexander regarding Pt's condition. Informed HEMSTITCHING MACHINE OPERATOR that Pt's is restless, BP is 175/115, pulse 106. Pt is alert and orientedX1 and does not follow command. Pt status is NPO. Pt failed bed side nursing swallow eval. IV fluid NS @ 100ml/hr. blood sugar is 79. Sitter at the bedside. HEMSTITCHING MACHINE OPERATOR ordered to keep monitoring restlessness, continue IV fluid, no sedation, neuro consult in am, and HEMSTITCHING MACHINE OPERATOR ordered BP meds PRN trandate IV 10mg/2ml. Order carried out. Charge nurse is aware and informed. Will continue to monitor.
[2020-04-12 21:30] VITALS: BP 177/112
[2020-04-12] MEDS: LABETALOL HCL IV 100MG VIAL IV PRN (21:46)
--- NOTE | 2020-04-12 21:46 | NUR ---
modeling director notes Pt's BP is 177/112. HR 99. Administered Trandate IV 10mg/2 ml PRN as ordered for BP. Pt is connected to heart monitor showed SR. Sitter at the bed side. Will continue to monitor.
[2020-04-12] MEDS: ATORVASTATIN 40 MG TABLET PO SCH (21:59)
[2020-04-12 22:40] VITALS: BP 165/119
--- NOTE | 2020-04-12 23:00 | NUR ---
warper tender notes Pt is incontinence. Bladder scan showed 0 ml. Informed and notified MD. Received order from ROOSEVELT Alexander to insert ruiz catherer.
--- NOTE | 2020-04-12 23:24 | NUR ---
technical specialist notes Inserted ruiz cath 16 fr. Pt tolerated activity well.
[2020-04-13] VITALS: BP 168/106
--- NOTE | 2020-04-13 01:02 | NUR ---
downstairs maid notes Informed and notified ROOSEVELT Alexander regarding NIH stroke scale 2. Charge nurse is aware and informed. No new order received. Will continue monitor.
--- NOTE | 2020-04-13 02:04 | NUR ---
sole stitcher hand notes Pt removed ruiz cath. Pt refused to have ruiz inserted again. Made aware risks and benefits. Pt stated "No!!" Unable to collect UA. Will continue to monitor.
[2020-04-13 04:00] VITALS: BP 169/122
--- NOTE | 2020-04-13 05:20 | NUR ---
small engine technician notes Informed and notified ROOSEVELT Alexander regarding Pt's BP 169/122. pulse is 101. TELEMARKETING SALES REPRESENTATIVE ordered to give Trandate 10 mg/2ml IV push PRN. Charge nurse is aware and informed. Order carried out. Will continue to monitor.
[2020-04-13] MEDS: LABETALOL HCL IV 100MG VIAL IV PRN ×2 (06:08→11:07)
[2020-04-13] MEDS: IV NS 0.9% 1,000 ML IV SCH ×2 (06:11→15:58)
[2020-04-13] MEDS: BLOOD SUGAR DIAGNOSTIC 1 EACH STRIP IN SCH ×4 (06:34→21:20)
[2020-04-13 06:45] LABS: BASOPHILS % (AUTO) 0.3 % (0.0-2.0); EOSINOPHILS % (AUTO) 2.5 % (0.0-6.0); HEMATOCRIT 35 % (33-45); HEMOGLOBIN 11.2 g/dL (11.5-14.8); LYMPHOCYTES # (AUTO) 0.9 /CMM (0.8-4.8); LYMPHOCYTES % (AUTO) 10.2 % (20.0-44.0); MEAN CORPUSCULAR HGB CONC 32 g/dl (31.0-36.0); MEAN CORPUSCULAR VOLUME 95 fL (82-100); MONOCYTES # (AUTO) 0.6 /CMM (0.1-1.30); MONOCYTES % (AUTO) 7.5 % (2.0-12.0); NEUTROPHILS # (AUTO) 6.6 /CMM (1.8-8.9); NEUTROPHILS % (AUTO) 79.5 % (43.0-81.0); PLATELET COUNT (AUTO) 389 /CMM (150-450); RED BLOOD CELL COUNT(AUTO) 3.64 MIL/uL (4.0-5.2); WHITE BLOOD COUNT (AUTO) 8.4 K/uL (4.3-11.0)
--- NOTE | 2020-04-13 06:45 | NUR ---
hose maker notes Pt is resting in bed comfortably. Pt is alert and orientedX1. Respiration is normal in 2 L NC. No SOB. No S/S of distress noted. Sitter at the bedside. Tele monitor showed SR HR at 80 bpm. IV sites at L hand is clean, intact and infusing well NS @ 100ml/hr. Kept Pt clean, dry and comfortable. Safety precautions is maintained. Bed at low position, brakes locked, side rails upX2 and call light is within reach. Will endorse to morning nurse for CRISTINA. Addendum: 04/13/20 at 0657 by SANFORD RADFORD RN hose maker closing notes
[2020-04-13 06:50] LABS: CALCIUM, SERUM 8.5 mg/dL (8.5-10.1); CREATININE 2.1 mg/dL (0.6-1.3); MAGNESIUM 1.6 mg/dL (1.8-2.4); POTASSIUM 3.2 mmol/L (3.5-5.1)
[2020-04-13] MEDS: LEVOTHYROXINE SODIUM 25 MCG TABLET PO SCH (07:30)
--- NOTE | 2020-04-13 07:32 | NUR ---
rn notes patient received on 2L nasal cannula, no sob noted, patient shows no s/s of pain at this time. A/O x 1 and is very much confused at this time. NPO at this time with plans of resuming home medications if patient passes RN swallow eval. L hand 22 with NS @ 100 ml per hour. bed at the lowest setting, call light within reach, side rails up x2. 1;1 sitter at all times.
[2020-04-13] MEDS: Magnesium 1GM/D5W 100ML PREMIX 100 ML IV SCH ×2 (07:50→08:50)
[2020-04-13] MEDS: POTASSIUM CL. PREMIX PERIPHER. 50 ML IV SCH ×4 (07:51→10:48)
[2020-04-13] MEDS: CHOLECALCIFEROL 1,000 UNIT TABLET (VIT D3) PO SCH (08:47)
[2020-04-13] MEDS: VENLAFAXINE XR 75 MG CAP.SR.24H PO SCH (08:47)
[2020-04-13] MEDS: FERROUS SULFATE (325 MG) 325 MG/TAB TABLET PO SCH (08:47)
[2020-04-13] MEDS: ASPIRIN 81 MG TAB.CHEW PO SCH (08:47)
[2020-04-13] MEDS: METOPROLOL SUCCINATE 50 MG TAB.SR.24H PO SCH (08:47)
[2020-04-13] MEDS: DOCUSATE SODIUM 100 MG CAPSULE PO SCH ×2 (08:48→16:02)
[2020-04-13] MEDS: hydrALAZINE HCL 10 MG TABLET PO SCH ×3 (08:48→16:02)
[2020-04-13] MEDS: CYCLOBENZAPRINE 10 MG TABLET PO SCH (08:48)
--- NOTE | 2020-04-13 08:49 | NUR ---
rn notes awaiting for DVT pump machine from central supply
--- NOTE | 2020-04-13 08:55 | NUR ---
rn notes patient able to swallow apple sauce and wants to try clear liquid. Did not want medications at this time because she said she might not be able to swallow them at this time. Agreed to start taking medication for afternoon.
[2020-04-13] MEDS: ENOXAPARIN SODIUM 40 MG/0.4 ML DISP.SYRIN SQ SCH (10:31)
[2020-04-13 13:14] LABS: THYROID STIMULATING HORMONE 1.163 uIU/mL (0.358-3.74)
--- NOTE | 2020-04-13 13:42 | NUR ---
Per Dr. Lundy's request, the Loader Unloader facilitated MPHQ-9 assessment at bedside. Pt is awake, lethargic, and is receptive to speaking with Loader Unloader. Overall MPHQ-9 score is 0. No psych consult needed at this time. Loader Unloader provided post-stroke educational material to the patient. Pt expressed understanding and was agreeable to reading the material provided to her. Loader Unloader engaged pt in conversation regarding home situation. Per pt, she lives at home with her mother and is planning to return home once ready for discharge. Loader Unloader will be available as needed to support pt.
--- NOTE | 2020-04-13 15:24 | NUR ---
rn notes patient has another covid testing done today, oropharyngeal route. sent to lab, signed book and awaiting for results
[2020-04-13] MEDS ORDERED: LORAZEPAM INJ 2 MG/ML VIAL IV PRN (16:00)
[2020-04-13] MEDS: CLOPIDOGREL BISULFATE 75 MG TABLET PO SCH (16:02)
--- NOTE | 2020-04-13 18:16 | NUR ---
rn notes patient remains on 2L nasal cannula, no sob noted, patient does have a high blood pressure but is controlled with medications. A lot less confused as compared to in the morning. Patients MRI brain WO contrast to be done tomorrow. L hand NS @ 100 ml per hour. Potassium replaced, magnesium replaced. DVT pumps are on and working. Patient shows no unilateral weakness, no slurred speech, and no confusion at this time. Bed at the lowest setting, call light within reach, side rails up x2.
[2020-04-13] MEDS: HYDROCODONE/APAP 5/325MG 1 EACH TABLET PO PRN ×2 (18:21→22:02)
--- NOTE | 2020-04-13 19:26 | NUR ---
SWINE NUTRITIONIST: RECEIVED PATIENT Patient in bed, awake, A/O x3. Sinus rhythm in the Tele monitor HR 91. Patient is hyperverbal, supplemental oxygen at 2L NC, denies SOB. C/o headache, received PRN [place] with improvement, plan for MRI Brain wo contrast per Audrey,RN report. IVF infusing. Fall; SKin precaution maintained.
[2020-04-13 20:00] VITALS: BP 136/97
[2020-04-13 20:15] VITALS: BP 136/97
[2020-04-13] MEDS: ATORVASTATIN 40 MG TABLET PO SCH (21:42)
[2020-04-13] MEDS ORDERED: SUMATRIPTAN SUCCINATE 100 MG TABLET ONE (22:16)
[2020-04-13] MEDS: SUMATRIPTAN SUCCINATE 100 MG TABLET PO PRN (23:34)
[2020-04-14] VITALS (7 sets, daily range): BP systolic 138–171; BP diastolic 95–127
[2020-04-14] MEDS: IV NS 0.9% 1,000 ML IV SCH ×3 (01:39→22:59)
[2020-04-14] MEDS: ZOLPIDEM TARTRATE 5 MG TABLET PO PRN ×2 (01:40→23:03)
[2020-04-14] MEDS: BLOOD SUGAR DIAGNOSTIC 1 EACH STRIP IN SCH ×4 (06:16→21:07)
[2020-04-14 06:22] LABS: BASOPHILS % (AUTO) 0.4 % (0.0-2.0); EOSINOPHILS % (AUTO) 3.2 % (0.0-6.0); HEMATOCRIT 35 % (33-45); HEMOGLOBIN 11.3 g/dL (11.5-14.8); LYMPHOCYTES % (AUTO) 12.3 % (20.0-44.0); MEAN CORPUSCULAR HGB CONC 33 g/dl (31.0-36.0); MEAN CORPUSCULAR VOLUME 95 fL (82-100); MONOCYTES # (AUTO) 0.7 /CMM (0.1-1.30); MONOCYTES % (AUTO) 8.9 % (2.0-12.0); NEUTROPHILS # (AUTO) 6.3 /CMM (1.8-8.9); NEUTROPHILS % (AUTO) 75.2 % (43.0-81.0); PLATELET COUNT (AUTO) 387 /CMM (150-450); RED BLOOD CELL COUNT(AUTO) 3.65 MIL/uL (4.0-5.2); WHITE BLOOD COUNT (AUTO) 8.3 K/uL (4.3-11.0)
--- NOTE | 2020-04-14 06:52 | NUR ---
LITHOGRAPHIC RETOUCHER APPRENTICE: END OF SHIFT REPORT Patient in bed, awake, slept well with PRN Ambien. Sinus rhythm in the Tele monitor with HR 83. Headache managed with PRN Imitrex with relief. IVF infusing. Calm and cooperative, compliant with Medication overnight. NIH stroke scale score 0. Plan for MRI Brain, patient is aware. Consent signed in the chart. Will endorse to oncoming RN.
[2020-04-14 07:21] LABS: ALBUMIN 2.9 g/dL (3.4-5.0); BILIRUBIN,TOTAL 0.3 mg/dL (0.2-1.0); CALCIUM, SERUM 8.2 mg/dL (8.5-10.1); MAGNESIUM 1.9 mg/dL (1.8-2.4); PHOSPHORUS 2.6 mg/dL (2.5-4.9); TOTAL PROTEIN, SERUM 6.8 g/dL (6.4-8.2)
--- NOTE | 2020-04-14 07:30 | NUR ---
lumber sorter machine Opening notes Patient is A/O x 4. Patient has no signs of distress and no shortness of breath room air. L hand IV #22 G Saline Lock. Calm and cooperative. Bed is in low settings with side rails up for safety. Call light is within reach. Continue to monitor.
[2020-04-14] MEDS: DOCUSATE SODIUM 100 MG CAPSULE PO SCH ×2 (08:30→17:00)
[2020-04-14] MEDS: VENLAFAXINE XR 75 MG CAP.SR.24H PO SCH (08:32)
[2020-04-14] MEDS: CHOLECALCIFEROL 1,000 UNIT TABLET (VIT D3) PO SCH (08:33)
[2020-04-14] MEDS: FERROUS SULFATE (325 MG) 325 MG/TAB TABLET PO SCH (08:33)
[2020-04-14] MEDS: LEVOTHYROXINE SODIUM 25 MCG TABLET PO SCH (08:34)
[2020-04-14] MEDS: hydrALAZINE HCL 10 MG TABLET PO SCH ×3 (08:34→17:37)
[2020-04-14] MEDS: METOPROLOL SUCCINATE 50 MG TAB.SR.24H PO SCH (08:35)
[2020-04-14] MEDS: ASPIRIN 81 MG TAB.CHEW PO SCH (08:47)
[2020-04-14] MEDS: CLOPIDOGREL BISULFATE 75 MG TABLET PO SCH (08:48)
[2020-04-14] MEDS: ENOXAPARIN SODIUM 40 MG/0.4 ML DISP.SYRIN SQ SCH (08:48)
[2020-04-14] MEDS: MUPIROCIN OINT 2% 22 GM TUBE SCH ×2 (08:57→21:12)
[2020-04-14] MEDS: SUMATRIPTAN SUCCINATE 100 MG TABLET PO PRN (09:32)
--- NOTE | 2020-04-14 18:28 | NUR ---
CATTLE RANCHER Closing Notes Patient is in bed A/O x4. Awake, cooperative and calm. Heart rate 72. L Hand IV #22 G intact and patent infusing 0.9% Normal Saline. Scheduled medications were given. Able to ambulate to the bathroom without difficulty and normal gait. NIH stroke scale score 0. Bed is on low settings side rails up for safety. Call light is within reach. Will endorse to oncoming RN.
--- NOTE | 2020-04-14 19:22 | NUR ---
MS RN: RECEIVED PATIENT Patient in bed, awake, appears calm, sitter was discontinued per COLE Jacques/am Primary nurse. IVF infusing. NIH stroke scale score 0. Pending COvid 19 result, contact isolation MRSA nares. Fall precaution maintained.
[2020-04-14] MEDS: HYDROCODONE/APAP 5/325MG 1 EACH TABLET PO PRN (20:23)
[2020-04-14] MEDS: ATORVASTATIN 40 MG TABLET PO SCH (21:10)
[2020-04-15 06:12] LABS: BASOPHILS % (AUTO) 0.3 % (0.0-2.0); EOSINOPHILS % (AUTO) 3.7 % (0.0-6.0); HEMATOCRIT 34 % (33-45); HEMOGLOBIN 10.8 g/dL (11.5-14.8); LYMPHOCYTES # (AUTO) 1.1 /CMM (0.8-4.8); LYMPHOCYTES % (AUTO) 13.7 % (20.0-44.0); MEAN CORPUSCULAR HGB CONC 32 g/dl (31.0-36.0); MEAN CORPUSCULAR VOLUME 96 fL (82-100); MONOCYTES # (AUTO) 0.7 /CMM (0.1-1.30); MONOCYTES % (AUTO) 8.8 % (2.0-12.0); NEUTROPHILS # (AUTO) 5.9 /CMM (1.8-8.9); NEUTROPHILS % (AUTO) 73.5 % (43.0-81.0); PLATELET COUNT (AUTO) 395 /CMM (150-450)
[2020-04-15 06:22] LABS: CALCIUM, SERUM 8.1 mg/dL (8.5-10.1); CREATININE 1.9 mg/dL (0.6-1.3); POTASSIUM 3.9 mmol/L (3.5-5.1)
[2020-04-15] MEDS: BLOOD SUGAR DIAGNOSTIC 1 EACH STRIP IN SCH ×4 (06:29→22:33)
--- NOTE | 2020-04-15 06:34 | NUR ---
MS RN: END OF SHIFT REPORT Patient in bed, adequate oxygenation on room air. Slept well with PRN Ambien. Headache managed with PRN [place]. IVF infusing. Calm and cooperative, compliant with Medication. NIH stroke scale score 0. Will endorse to oncoming RN.
[2020-04-15 07:30] VITALS: BP 158/110
--- NOTE | 2020-04-15 08:00 | NUR ---
MS RN Opening notes Patient is A/O x 4. Patient has no signs of distress and no shortness of breath room air. L hand IV #22 G Saline Lock. Calm and cooperative. Bed is in low settings with side rails up for safety. Call light is within reach. Continue to monitor.
[2020-04-15] MEDS: DOCUSATE SODIUM 100 MG CAPSULE PO SCH ×2 (09:00→17:00)
[2020-04-15] MEDS: VENLAFAXINE XR 75 MG CAP.SR.24H PO SCH (09:10)
[2020-04-15] MEDS: METOPROLOL SUCCINATE 50 MG TAB.SR.24H PO SCH (09:12)
[2020-04-15] MEDS: CHOLECALCIFEROL 1,000 UNIT TABLET (VIT D3) PO SCH (09:13)
[2020-04-15] MEDS: hydrALAZINE HCL 10 MG TABLET PO SCH ×3 (09:13→17:43)
[2020-04-15] MEDS: FERROUS SULFATE (325 MG) 325 MG/TAB TABLET PO SCH (09:13)
[2020-04-15] MEDS: LEVOTHYROXINE SODIUM 25 MCG TABLET PO SCH (09:13)
[2020-04-15] MEDS: ASPIRIN 81 MG TAB.CHEW PO SCH (09:13)
[2020-04-15] MEDS: HYDROCODONE/APAP 5/325MG 1 EACH TABLET PO PRN ×2 (09:14→17:45)
[2020-04-15] MEDS: IV NS 0.9% 1,000 ML IV SCH ×2 (09:15→22:33)
[2020-04-15] MEDS: ENOXAPARIN SODIUM 40 MG/0.4 ML DISP.SYRIN SQ SCH (09:15)
[2020-04-15] MEDS: MUPIROCIN OINT 2% 22 GM TUBE SCH ×2 (09:25→21:02)
[2020-04-15] MEDS: AMLODIPINE BESYLATE 5 MG TABLET PO SCH (11:17)
[2020-04-15 16:00] VITALS: BP 157/107
--- NOTE | 2020-04-15 19:05 | NUR ---
RN NOTES: RECEIVED AWAKE ON BED, A/OX4, VERY PLEASANT PERSONALITY,WITH IVF ONGOING OF NS AT 100ML/HR, CANNULA INTACT ON RH G#22; SHE IS AMBULATORY, SKIN IS INTACT, CONTINENT BOTH BOWEL AND BLADDER, ORIENTED TO UNIT AND STAFF, FALL, SAFETY AND ASPIRATION PRECAUTION OBSERVED.KEPT CALL LIGHT WITHIN EASY REACH. Addendum: 04/16/20 at 0033 by JOE REEVES RN ADDITIONAL NOTES: PATIENT IS POSITIVE FOR MRSA OF THE NARES, OBSERVED CONTACT PRECAUTION.
--- NOTE | 2020-04-15 19:53 | NUR ---
PT RESTING IN BED WITH PAIN MGT EFFECTIVE FOR HEADACHE.PT AMBULATED WITH P.T. ALONG THE HALLWAY TOLERATING WELL WELL.CALL LIGHT PLACED WITHIN REACH.
[2020-04-15 20:00] VITALS: BP 165/84
--- NOTE | 2020-04-15 21:00 | NUR ---
RN NOTES: RECEIVED CALL FROM HCP([facility])-SPOKE WITH KARRIE F/U IF PATIENT WILL BE DISCHARGE TOMORROW, OF TODAY NO PLANS YET, INSTRUCT TO FOLLOW UP IN THE MORNING.
[2020-04-15] MEDS: ATORVASTATIN 40 MG TABLET PO SCH (22:17)
--- NOTE | 2020-04-15 22:34 | NUR ---
RN NOTES: BLOOD SUGAR CHECK-65, NO INSULIN PER SCALE, TAKING GOOD ORALLY,GIVEN ORANGE JUICE, IVF COMPLETED, NEW BAG ON NS ATRTED AT 100 ML/HR VIA INFUSSION PUMP, WILL CONTINUE TO MONITOR FOR SIGN OF HYPER/HYPOGLYCEMIA.
--- NOTE | 2020-04-16 06:23 | NUR ---
RN NOTES: PATIENT IS STILL ASLEEP,NO PAIN OR DISCOMFORT, NON LABORED BREATHING, REQUEST TO TEMPORARILY STOP THE IVF IN ORDER FOR HER TO TAKE A NAP, TO RESUME WHEN SHE IS AWAKE, SHE IS TAKING FLUIDS ORALLY, KEPT ON CLOSE WATCH, CALL LIGHT WITHIN EASY REACH.FOR LAB TEST THIS MORNING, FOR RD F/U ON 04/18/20.ENDORSED FOR CONTINUITY OF CARE.
[2020-04-16 06:38] LABS: BASOPHILS % (AUTO) 0.3 % (0.0-2.0); CALCIUM, SERUM 8.5 mg/dL (8.5-10.1); CREATININE 1.9 mg/dL (0.6-1.3); EOSINOPHILS % (AUTO) 4.1 % (0.0-6.0); HEMATOCRIT 33 % (33-45); HEMOGLOBIN 10.9 g/dL (11.5-14.8); LYMPHOCYTES # (AUTO) 1.2 /CMM (0.8-4.8); LYMPHOCYTES % (AUTO) 14.8 % (20.0-44.0); MEAN CORPUSCULAR HGB CONC 33 g/dl (31.0-36.0); MEAN CORPUSCULAR VOLUME 95 fL (82-100); MONOCYTES # (AUTO) 0.7 /CMM (0.1-1.30); MONOCYTES % (AUTO) 8.1 % (2.0-12.0); NEUTROPHILS # (AUTO) 5.8 /CMM (1.8-8.9); NEUTROPHILS % (AUTO) 72.7 % (43.0-81.0); PLATELET COUNT (AUTO) 354 /CMM (150-450); POTASSIUM 4.1 mmol/L (3.5-5.1)
[2020-04-16] MEDS ORDERED: AMLO5TAB9 PO (07:42)
[2020-04-16] MEDS ORDERED: METO50TA7 PO (07:42)
[2020-04-16 08:00] VITALS: BP 161/107
--- NOTE | 2020-04-16 08:00 | NUR ---
MS RN NOTES: PATIENT IS AWAKE,NO PAIN OR DISCOMFORT, NON LABORED BREATHING ON ROOM AIR, REQUEST TO TEMPORARILY STOP THE IVF IN ORDER FOR HER TO TAKE A NAP, TO RESUME WHEN SHE IS AWAKE, SHE IS TAKING FLUIDS ORALLY,DENIES ANY PAIN OR DISTRESS. KEPT ON CLOSE WATCH, CALL LIGHT WITHIN EASY REACH.
[2020-04-16] MEDS: DOCUSATE SODIUM 100 MG CAPSULE PO SCH (09:00)
[2020-04-16] MEDS: BLOOD SUGAR DIAGNOSTIC 1 EACH STRIP IN SCH (09:18)
[2020-04-16] MEDS: ASPIRIN 81 MG TAB.CHEW PO SCH (09:19)
[2020-04-16] MEDS: CHOLECALCIFEROL 1,000 UNIT TABLET (VIT D3) PO SCH (09:19)
[2020-04-16] MEDS: AMLODIPINE BESYLATE 5 MG TABLET PO SCH (09:21)
[2020-04-16 09:22] VITALS: BP 161/107
[2020-04-16] MEDS: FERROUS SULFATE (325 MG) 325 MG/TAB TABLET PO SCH (09:22)
[2020-04-16] MEDS: LEVOTHYROXINE SODIUM 25 MCG TABLET PO SCH (09:22)
[2020-04-16] MEDS: METOPROLOL SUCCINATE 50 MG TAB.SR.24H PO SCH (09:22)
[2020-04-16] MEDS: VENLAFAXINE XR 75 MG CAP.SR.24H PO SCH (09:23)
[2020-04-16] MEDS: ENOXAPARIN SODIUM 40 MG/0.4 ML DISP.SYRIN SQ SCH (09:23)
[2020-04-16] MEDS: MUPIROCIN OINT 2% 22 GM TUBE SCH (09:34)
--- NOTE | 2020-04-16 11:00 | NUR ---
DISCHARGED PT HOME VIA PRIVATE CAR-PICKED UP BY HER BROTHER.WITH PRESCRIPTIONS SENT TO [facility] IN [place].IV H/L REMOVED TO LT HAND WITH NO BLEEDING OR SWELLING NOTED.WITH STABLE V/S.AMB AD LINUS.
[2020-04-16] MEDS ORDERED: hydrALAZINE HCL 25 MG TABLET PO SCH (13:00)
== END 2020-04-16 11:00 | disposition home or self-care (01) | DRG 682 ==
LOC: ER 08:29 → TELE 11:07 → MED 04-14 12:12
PROVIDERS: ADMIT Family Medicine; ATTEND Family Medicine
DX: N17.0 Acute kidney failure with tubular necrosis (principal); G92 Toxic encephalopathy; I21.A1 Myocardial infarction type 2; E44.1 Mild protein-calorie malnutrition; I12.9 Hypertensive chronic kidney disease with stage 1 through stage 4 chronic kidney disease, or unspecified chronic kidney disease; N18.9 Chronic kidney disease, unspecified; E87.6 Hypokalemia; F41.9 Anxiety disorder, unspecified; F32.9 Major depressive disorder, single episode, unspecified; E83.42 Hypomagnesemia; E78.5 Hyperlipidemia, unspecified; G89.4 Chronic pain syndrome; G43.909 Migraine, unspecified, not intractable, without status migrainosus; I25.2 Old myocardial infarction; D72.829 Elevated white blood cell count, unspecified; E03.9 Hypothyroidism, unspecified; Z98.84 Bariatric surgery status; Z90.5 Acquired absence of kidney; Z87.442 Personal history of urinary calculi; Z86.73 Personal history of transient ischemic attack (TIA), and cerebral infarction without residual deficits; Z79.899 Other long term (current) drug therapy; Z79.82 Long term (current) use of aspirin; N20.0 Calculus of kidney; Z82.49 Family history of ischemic heart disease and other diseases of the circulatory system
CPT/HCPCS: 36415; 70450-TC; 70551-TC; 71045-TC; 80048-TC; 80053-TC; 80061-TC; 80076-TC; 80305; 82728-TC; 82962-TC; 83540-TC; 83605-TC; 83735-TC; 83880; 84100-TC; 84439-TC; 84443-TC; 84484-TC; 85025-TC; 85385-TC; 85730-TC; 87081-TC; 92507-TC; 92521; 92611-TC; 93307-TC; 97110-TC; 97116-TC; 97530-TC; G0378; J1650; J2060; J3475; J3480; J3490; J7030; J7040; J7050; Q9967; U0003-CS

== ENCOUNTER 2021-05-19 19:46 | Emergency (ER) | payer SELFPAY ==
[~2021-05-19] VITALS: Ht 182.9 cm; Wt 145.1 kg
[~2021-05-19 19:46] MED LIST changes: +AMLO-212 PO; +ATOR40TA PO; +BUPR-319 PO; -BUPR-51 PO; -CARI350T PO; +CYCL10TA9 PO; +DOCU100C36 PO; -ETHY1TAB10 PO; +HYDR-4075 PO; -METO25TA4 PO; +METO50TA7 PO; +OLAN7.5T3 PO; -OXYC40TA57 PO; +TIZA4TAB5 PO
--- NOTE | 2021-05-19 19:55 | NUR ---
PATIENT BIBRA99 FROM HOME FOR SYNCOPAL EPISODE +ORTHO ON SCENE. KADI LOC, KADI HIT TO THE HEAD. PATIENT IS A/O X 4, RR EVEN AND UNLABORED, NO SIGNS OF SOB NOTED. PATIENT CONNCETED TO ANTICHECKING IRON WORKER.
[2021-05-19] MEDS: IV NS 0.9% 1,000 ML BAG IV ONE (20:13)
--- NOTE | 2021-05-19 20:22 | NUR ---
Patient does not wish to proceed with medical care recommended by Dr. BOWMAN. Patient given information related to possible complications, up to and including , which could occur as a result of leaving the hospital at this time. Patient verbalizes understanding of risks involved due to leaving against medical advice. Patient has signed AMA form.
[2021-05-19 20:27] VITALS: BP 105/61
== END 2021-05-19 20:28 | disposition left against medical advice (07) ==
LOC: ER 19:47
DX: R55 Syncope and collapse (principal); R42 Dizziness and giddiness; I10 Essential (primary) hypertension; G89.29 Other chronic pain; F32.9 Major depressive disorder, single episode, unspecified; Z98.890 Other specified postprocedural states; Z79.899 Other long term (current) drug therapy; Z79.82 Long term (current) use of aspirin
CPT/HCPCS: 82962; 93005; 96360; 99283; J7030

== ENCOUNTER 2021-05-24 14:16 | Emergency (ER) | payer BC ==
[~2021-05-24] VITALS: Ht 182.9 cm; Wt 147.4 kg
[2021-05-24] MEDS ORDERED: oxyCODONE/APAP (5/325 MG) 1 UDTAB TABLET ONE ×2 (15:02→17:06)
[2021-05-24] MEDS: oxyCODONE/APAP (5/325 MG) 1 UDTAB TABLET PO ONE (15:12)
--- NOTE | 2021-05-24 15:12 | NUR ---
BAND SAWMILL OPERATOR AT BEDSIDE FOR EVAL.
--- NOTE | 2021-05-24 16:21 | NUR ---
CONTACTED HARMONY NAVARRO OF DR. WHIPPLE TO CALL US BACK.
--- NOTE | 2021-05-24 17:06 | NUR ---
RAMON BAKER SPEAKING WITH DR. BOWMAN.
[2021-05-24] MEDS ORDERED: OXYC-128 PO (17:18)
--- NOTE | 2021-05-24 17:19 | NUR ---
DR. BOWMAN AT BEDSIDE EXPLAINING ACI TO THE PATIENT.
--- NOTE | 2021-05-24 18:20 | NUR ---
CD IMAGES PROVIDED. DEMOND WRAP APPLIED ON RIGHT LEG AND RIGHT ANKLE. CRUTCHES PROVIDED PER ORTHOPEDICS RECOMMENDATION. Patient discharged to home in stable condition. Written and verbal after care instructions given. Patient verbalizes understanding of instruction.
--- NOTE | 2021-05-24 18:24 | NUR ---
PATIENT ASSISTED VIA WHEELCHAIR TO THE CAR, PICKED UP BY BROTHER.
[2021-05-24 18:25] VITALS: BP 136/94
== END 2021-05-24 18:26 | disposition home or self-care (01) ==
LOC: ER 14:18
DX: S82.491A Other fracture of shaft of right fibula, initial encounter for closed fracture (principal); S80.01XA Contusion of right knee, initial encounter; I10 Essential (primary) hypertension; F32.9 Major depressive disorder, single episode, unspecified; M54.9 Dorsalgia, unspecified; G89.29 Other chronic pain; Z98.890 Other specified postprocedural states; Z79.82 Long term (current) use of aspirin; Z79.899 Other long term (current) drug therapy; W18.39XA Other fall on same level, initial encounter; Y93.89 Activity, other specified; Y92.89 Other specified places as the place of occurrence of the external cause; Y99.8 Other external cause status
CPT/HCPCS: 73564-TC; 73590-TC; 73630-TC

== ENCOUNTER 2023-03-01 11:49 | Emergency (ER) | payer BC ==
[~2023-03-01] VITALS: Ht 172.7 cm; Wt 93.0 kg
--- NOTE | 2023-03-01 11:59 | NUR ---
PT DOESNOT WANT TO LAY DOWN HER, SHE WANTS TO STAY ON THE WHEEL CHAIR. PAIN STARTED 3WEEKS AGO NO HX OF TRAUMA,NOR OTHER SIGN AND SYMPTOMS. WENT TO SEE HER MD WAS GIVEN NORCO, AND AWAITS FOR CT SCAN PTC, PAIN STARTED TO BE UNBEARABLE THUS WENT TO ER. MD MADE AWARE.
--- NOTE | 2023-03-01 12:00 | NUR ---
AT BEDSIDE FOR EVAL
[2023-03-01] MEDS ORDERED: HYDROCODONE/APAP 10/325MG TABLET ONE (12:18)
--- NOTE | 2023-03-01 12:20 | NUR ---
PT AWAY AT CT
[2023-03-01] MEDS ORDERED: HYDROCODONE/APAP 10/325MG TABLET PO ONE (12:30)
--- NOTE | 2023-03-01 12:30 | NUR ---
PT BACK FROM CT
[2023-03-01] MEDS ORDERED: HYDR-3980 PO (14:03)
[2023-03-01 14:10] VITALS: BP 148/98
== END 2023-03-01 14:12 | disposition home or self-care (01) ==
LOC: ER 11:55
DX: M17.12 Unilateral primary osteoarthritis, left knee (principal); I10 Essential (primary) hypertension; M54.50 Low back pain, unspecified; G89.29 Other chronic pain; F32.A Depression, unspecified; Z98.890 Other specified postprocedural states; Z79.899 Other long term (current) drug therapy; Z79.82 Long term (current) use of aspirin
CPT/HCPCS: 73700-TC

== ENCOUNTER 2024-06-24 08:11 | Inpatient (IN) | payer BC ==
[~2024-06-24] VITALS: Ht 182.9 cm; Wt 158.8 kg
[~2024-06-24 08:11] MED LIST changes: +HYDR-3980 PO
--- NOTE | 2024-06-24 08:45 | NUR ---
RN NOTES RIGHT ARM ULTRASOUND PERFORMED TO IDENTIFY ADEQUATE VEIN FOR MIDLINE INSERTION. RIGHT ARM PREPPED USING STERILE TECHNIQUE. POWERGLIDE 18G/10CM WAS INSERTED AT RIGHT BASILIC VEIN WITH EASE, GOOD NON PULSATILE BLOOD RETURN AND SECURED WITH INTERLOCK DEVICE. DRESSED USING NORMAL STERILE FASHION. EACH PORT WAS ASPIRATED WITH VENOUS BLOOD AND EACH PORT WAS FLUSHED WITH 10ML OF NORMAL SALINE. PROCEDURE WELL TOLERATED BY THE PT. SUPERVISED BY DR.EM HAWTHORNE PhD. ENDORSED TO BEDSIDE COLE CARTAGENA.
[2024-06-24 08:46] LABS: BASOPHILS # (AUTO) 0.1 K/uL (0.0-0.2); BASOPHILS % (AUTO) 0.7 % (0.0-2.0); EOSINOPHILS % (AUTO) 0.5 % (0.0-6.0); HEMATOCRIT 45 % (33-45); HEMOGLOBIN 14.6 g/dL (11.5-14.8); LYMPHOCYTES # (AUTO) 1.6 K/uL (0.8-4.8); LYMPHOCYTES % (AUTO) 14.9 % (20.0-44.0); MEAN CORPUSCULAR HEMOGLOBIN 30 PG (26.0-33.0); MEAN CORPUSCULAR HGB CONC 32 g/dl (31.0-36.0); MEAN CORPUSCULAR VOLUME 92 fL (82-100); MONOCYTES # (AUTO) 0.8 K/uL (0.1-1.30); MONOCYTES % (AUTO) 7.2 % (2.0-12.0); NEUTROPHILS # (AUTO) 8.1 K/uL (1.8-8.9); NEUTROPHILS % (AUTO) 76.7 % (43.0-81.0); PLATELET COUNT (AUTO) 319 K/uL (150-450); RED BLOOD CELL COUNT(AUTO) 4.89 MIL/uL (4.0-5.2); RED CELL DISTRIBUTION WIDTH 15.5 % (11.5-15.0); WHITE BLOOD COUNT (AUTO) 10.6 K/uL (4.3-11.0)
[2024-06-24] MEDS ORDERED: ONDANSETRON HCL/PF 4 MG/2 ML VIAL ONE (08:46)
[2024-06-24] MEDS ORDERED: DILTIAZEM HCL 25 MG IV ONE (08:47)
[2024-06-24] MEDS: DILTIAZEM HCL 50 MG IV IV ONE (08:50)
[2024-06-24] MEDS: ONDANSETRON HCL/PF - ER 4 MG/2 ML VIAL IV ONE (08:51)
[2024-06-24 09:03] LABS: ALCOHOL, BLOOD < 3 mg/dL (0-10)
[2024-06-24 09:04] LABS: CALCIUM, SERUM 10.4 mg/dL (8.5-10.1); CARBON DIOXIDE 21 mmol/L (21-32); CHLORIDE 103 mmol/L (98-107); CREATININE 1.7 mg/dL (0.6-1.3); GLUCOSE 102 mg/dL (74-106); SODIUM SERUM 139 mmol/L (136-145); UREA NITROGEN, BLOOD 16 mg/dL (7-18)
[2024-06-24 09:15] LABS: LACTIC ACID 2.2 mmol/L (0.4-2.0)
--- NOTE | 2024-06-24 09:16 | NUR ---
move sheet submitted admit: weakness, afib, stable, tele
[2024-06-24 09:18] LABS: INR 1.11 (0.91-1.10); PARTIAL THROMBOPLASTIN TIME 24.8 SEC (24.3-34.3); PROTHROMBIN TIME 11.7 SECS (9.2-11.1)
[2024-06-24 09:20] LABS: ALANINE AMINOTRANSFERASE 20 U/L (12-78); ALBUMIN 3.4 g/dL (3.4-5.0); ALKALINE PHOSPHATASE 257 U/L (46-116); ASPARTATE AMINOTRANSFERASE 13 U/L (15-37); BILIRUBIN,DIRECT 0.2 mg/dL (0.0-0.2); BILIRUBIN,TOTAL 0.5 mg/dL (0.2-1.0); TOTAL PROTEIN, SERUM 7.7 g/dL (6.4-8.2)
--- NOTE | 2024-06-24 09:20 | NUR ---
contacted nurse sup for bed assignment
[2024-06-24] MEDS ORDERED: ACETAMINOPHEN 325 MG TABLET PO PRN (09:30)
[2024-06-24] MEDS ORDERED: MAG HYDROX/AL HYDROX/SIMETH 30 ML UDC PO PRN (09:30)
[2024-06-24] MEDS ORDERED: MORPHINE SULFATE INJ 2 MG/ML DISP.SYRIN IV PRN (09:30)
[2024-06-24] MEDS ORDERED: hydrALAZINE HCL IV 20 MG VIAL IV PRN (09:30)
[2024-06-24] MEDS ORDERED: ASPIRIN 325 MG TABLET ONE (09:38)
[2024-06-24] MEDS ORDERED: RIVA10TA PO (09:40)
[2024-06-24] MEDS ORDERED: NIFE60TA73 PO (09:40)
[2024-06-24] MEDS ORDERED: SPIR25TA6 PO (09:40)
[2024-06-24] MEDS ORDERED: ALLO100T PO (09:40)
[2024-06-24] MEDS ORDERED: BUPR-96 PO (09:40)
[2024-06-24] MEDS ORDERED: CHOL12502 PO (09:40)
[2024-06-24] MEDS ORDERED: METO-357 PO (09:40)
[2024-06-24] MEDS ORDERED: SEMA1PEN SQ (09:40)
[2024-06-24] MEDS ORDERED: AMIT10TA6 PO (09:40)
[2024-06-24] MEDS ORDERED: OXYC20TA42 PO (09:40)
[2024-06-24] MEDS ORDERED: FLEC50TA2 PO (09:40)
[2024-06-24] MEDS: ASPIRIN 325 MG TABLET PO ONE (09:45)
[2024-06-24] MEDS: IV NS 0.9% 1,000 ML BAG IV ONE (10:00)
[2024-06-24] MEDS ORDERED: CEFTRIAXONE 1GM BAG (ER ONLY) 50 ML IV ONE (10:03)
[2024-06-24] MEDS: CEFTRIAXONE 1GM BAG (ER ONLY) 1 GM/50 ML PIGGYBACK IV ONE (10:04)
--- NOTE | 2024-06-24 10:19 | NUR ---
report given to Nayana GALVAN to continue plan of care.
--- NOTE | 2024-06-24 11:06 | NUR ---
wheeled patient via gurney accompanied by RN and emt in no distress. RN assigned at bedside to assume care.
[2024-06-24 12:00] VITALS: BP 137/72; TEMP 98.2; O2SAT 96
[2024-06-24 12:10] LABS: THYROID STIMULATING HORMONE 1.52 uIU/mL (0.358-3.74)
[2024-06-24] MEDS: oxyCODONE IR immediate release 5 MG TABLET PO SCH (14:17)
[2024-06-24] MEDS: ONDANSETRON HCL/PF 4 MG/2 ML VIAL IVP PRN (14:21)
--- NOTE | 2024-06-24 14:30 | NUR ---
SOCIAL MEDIA MARKETING ANALYST NOTE MEDICATION VITAMIN D WAS CALLED IN TO PHARMACY MEDICATION IS NOT IN CASSETTE OR OMNCELL MEDICATION PENDING ARRIVAL BY PHARMACIST
--- NOTE | 2024-06-24 14:53 | NUR ---
SPECIAL PROCEDURES TECHNOLOGIST NOTE MEDICATION FOR NAUSEA WAS ADMINISTERED TO PATIENT BY RNKYLAH BY IV PUSH. PATIENT STATED FELT A DECREASE IN NAUSEA NO EMISIS PRESENT WILL CONTINUE TO MONITOR PATIENT.
--- NOTE | 2024-06-24 15:50 | NUR ---
COVER INSPECTOR NOTE MEDICATION ORDERED TO BE ADMINISTERED 1500 MEDICATION WILL BE GIVEN LATE. PHARMACIST ARRIVED WITH MEDICATION
[2024-06-24 16:00] VITALS: BP 137/72; TEMP 98.2; O2SAT 96
[2024-06-24] MEDS: ERGOCALCIFEROL (VITAMIN D 2) 50,000 UNIT CAPSULE PO SCH (16:44)
[2024-06-24] MEDS ORDERED: APIXABAN 5 MG TABLET PO SCH (17:00)
--- NOTE | 2024-06-24 17:24 | NUR ---
PERSONAL LINES ACCOUNT MANAGER NOTE CALLED PHARMACY FOR MEDICATION TAMBOCOR. MEDICATION NOT IN PATIENT BIN/CASSETTE OR OMNECELL PHARMACIST WILL BRING NEW SET.
[2024-06-24] MEDS: FLECAINIDE ACETATE 50 MG TABLET PO SCH (18:19)
--- NOTE | 2024-06-24 19:30 | NUR ---
CHEMISTRY TECHNICIAN OPENING NOTE RECEIVED PT IN BED. A/O X4. DENIES PAIN. NO DISTRESS AND DISCOMFORT NOTED. ON ROOM AIR, NO SOB NOTED. ON ROTO GRAVURE PRESS OPERATOR, READING A-FIB, HR 84. IV ACCESS JANET ML SL. PT IS AMB WITH ASSIST. ALL SAFETY PRECAUTIONS IN PLACE: BED LOCKED AND IN LOWEST POSITION, SIDE RAILS UP X3, CALL LIGHT AND TABLE WITHIN REACH. WILL CONTINUE PLAN OF CARE.
--- NOTE | 2024-06-24 19:30 | NUR ---
POSTBED STITCHER OPENING NOTE RECEIVED PT IN BED. A/O X4. DENIES PAIN. NO DISTRESS AND DISCOMFORT NOTED. ON ROOM AIR, NO SOB NOTED. ON COMMUNITY PLANNER, READING A-FIB, HR 84. IV ACCESS GORDON SANIA KOENIG. PT IS AMB WITH ASSIST. ALL SAFETY PRECAUTIONS IN PLACE: BED LOCKED AND IN LOWEST POSITION, SIDE RAILS UP X3, CALL LIGHT AND TABLE WITHIN REACH. WILL CONTINUE PLAN OF CARE.
--- NOTE | 2024-06-24 19:53 | NUR ---
Payment Collector closing note RECEIVED PATIENT 1130 PATIENT ALERT AND ORIENTED CURRENTLY IN ROOM AIR ADMITTED FOR DIZZINESS AND WEAKNESS PATIENT A/O X4 PATIENT HAS UNSTEADY GAIT. PATIENT CURRENTLY HAS RIGHT UPPER LINE ACCESS NO SIGNS OF INFILTRATION ,DENIES PAIN AND DISCOMFORT AT THIS TIME. PATIENT IS ABLE TO MAKE NEEDS KNOWN COMPLIANT WITH MEDICATION. SAFETY MEASURES MAINTAINED. BED IN LOWEST/LOCKED POSITION, WHEELS LOCKED, CALL LIGHT/BEDSIDE TABLE W/I REACH. SCHEDULED MEDICATION ADMINISTERED. PT WAS TURNED/REPOSITIONED INDEPENDENTLY. ALL NEEDS ATTENDED/ANTICIPATED. WILL ENDORSE POC TO INCOMING NURSE
[2024-06-24 20:00] VITALS: BP 119/74; TEMP 98.3; O2SAT 93
[2024-06-24] MEDS: ATORVASTATIN 40 MG TABLET PO SCH (21:09)
[2024-06-24] MEDS: AMITRIPTYLINE HCL 10 MG TABLET PO SCH (21:10)
[2024-06-25] VITALS (7 sets, daily range): BP systolic 105–132; BP diastolic 63–89; TEMP 97.3–98.6; O2SAT 94–100
--- NOTE | 2024-06-25 06:48 | NUR ---
CLAY CARMAN CLOSING NOTE PT IN BED. A/O X4. DENIES PAIN. NO DISTRESS AND DISCOMFORT NOTED. ON ROOM AIR, NO SOB NOTED. ON INTERACTIVE PRODUCER, READING SR, HR 85. IV ACCESS JANET ML, SL. PT IS AMB WITH ASSIST. ALL DUE MEDS GIVEN. BED LOCKED AND IN LOWEST POSITION, SIDE RAILS UP X3, CALL LIGHT AND TABLE WITHIN REACH. WILL ENDORSE TO NEXT SHIFT NURSE FOR CRISTINA.
--- NOTE | 2024-06-25 07:05 | NUR ---
FIRE FIGHTER CRASH FIRE AND RESCUE OPENING NOTE REC'D PT IN BED AWAKE. A&OX4, ABLE TO MAKE NEEDS KNOWN. DENIES ANY PAIN OR DISCOMFORT NOTED. ON TRACH W/ COOL AEROSOL FIO2: 28%. TOLERATING WELL, O2 SAT > 95%.ON VISUAL COMMUNICATIONS INSTRUCTOR W/ CURRENT READING OF SR 72. IV ACCESS ON JANET #18G ML-SL; CLEAN, INTACT & PATENT. ALL SAFETY MEASURES IN PLACE, HEAD ELEVATED TO PT'S COMFORT, BED IN LOW POSITION & LOCKED, SIDE RAILS UP X3, BEDSIDE TABLE & CALL LIGHT W/IN EASY REACH. WILL CONTINUE W/ ON-GOING PLAN OF CARE. Addendum: 06/25/24 at 1043 by FELIZ RASMUSSEN RN PLS DISREGARD THIS NOTE
--- NOTE | 2024-06-25 07:05 | NUR ---
SUPERVISOR CLAIMS OPENING NOTE REC'D PT IN BED AWAKE. A&OX4, ABLE TO MAKE NEEDS KNOWN. DENIES ANY PAIN OR DISCOMFORT NOTED. ON ROOM AIR. TOLERATING WELL, O2 SAT > 95%.ON SOCIAL SCIENCES INSTRUCTOR W/ CURRENT READING OF SR 72. IV ACCESS ON JANET #18G ML-SL; CLEAN, INTACT & PATENT. ALL SAFETY MEASURES IN PLACE, HEAD ELEVATED TO PT'S COMFORT, BED IN LOW POSITION & LOCKED, SIDE RAILS UP X3, BEDSIDE TABLE & CALL LIGHT W/IN EASY REACH. WILL CONTINUE W/ ON-GOING PLAN OF CARE.
[2024-06-25 07:15] LABS: BASOPHILS # (AUTO) 0.1 K/uL (0.0-0.2); BASOPHILS % (AUTO) 0.7 % (0.0-2.0); EOSINOPHILS # (AUTO) 0.1 K/uL (0.0-0.7); EOSINOPHILS % (AUTO) 1.7 % (0.0-6.0); HEMATOCRIT 35 % (33-45); HEMOGLOBIN 11.4 g/dL (11.5-14.8); LYMPHOCYTES % (AUTO) 23.7 % (20.0-44.0); MEAN CORPUSCULAR HEMOGLOBIN 30 PG (26.0-33.0); MEAN CORPUSCULAR HGB CONC 32 g/dl (31.0-36.0); MEAN CORPUSCULAR VOLUME 94 fL (82-100); MONOCYTES # (AUTO) 0.6 K/uL (0.1-1.30); MONOCYTES % (AUTO) 6.9 % (2.0-12.0); NEUTROPHILS # (AUTO) 5.6 K/uL (1.8-8.9); PLATELET COUNT (AUTO) 227 K/uL (150-450); RED BLOOD CELL COUNT(AUTO) 3.75 MIL/uL (4.0-5.2); RED CELL DISTRIBUTION WIDTH 15.6 % (11.5-15.0); WHITE BLOOD COUNT (AUTO) 8.4 K/uL (4.3-11.0)
[2024-06-25] MEDS: LEVOTHYROXINE SODIUM 25 MCG TABLET PO SCH (07:58)
--- NOTE | 2024-06-25 08:00 | NUR ---
RESTAURANT HOST/HOSTESS LAB NOTE REC'D CALL FROM LAB REGARDING CRITICAL SODIUM LEVEL OF 157 @ 0745. [address] DR. TORRES WITH NO NEW ORDERS AT THIS TIME.
[2024-06-25 08:26] LABS: ALBUMIN 2.7 g/dL (3.4-5.0); BILIRUBIN,TOTAL 0.3 mg/dL (0.2-1.0); CALCIUM, SERUM 8.5 mg/dL (8.5-10.1); CREATININE 1.7 mg/dL (0.6-1.3); MAGNESIUM 1.5 mg/dL (1.8-2.4); POTASSIUM 4.1 mmol/L (3.5-5.1); TOTAL PROTEIN, SERUM 5.8 g/dL (6.4-8.2)
[2024-06-25] MEDS: VENLAFAXINE XR 75 MG CAP.SR.24H PO SCH (08:59)
[2024-06-25] MEDS: FERROUS SULFATE (325 MG) 325 MG/TAB TABLET PO SCH (08:59)
[2024-06-25] MEDS ORDERED: RIVAROXABAN 10 MG TABLET PO SCH (09:00)
[2024-06-25] MEDS: SPIRONOLACTONE 25 MG TABLET PO SCH (09:01)
[2024-06-25] MEDS: NIFEDIPINE XL 60 MG TAB.ER.24 PO SCH (09:01)
[2024-06-25] MEDS: METOPROLOL SUCCINATE 50 MG TAB.SR.24H PO SCH (09:01)
[2024-06-25] MEDS: ALLOPURINOL 100 MG TABLET PO SCH (09:02)
[2024-06-25] MEDS: BUPROPION XL 150 MG TAB.ER.24 PO SCH (09:02)
[2024-06-25] MEDS: RIVAROXABAN 10 MG TABLET PO SCH (09:02)
[2024-06-25] MEDS: FLECAINIDE ACETATE (100 MG) 100 MG TABLET PO SCH (09:34)
[2024-06-25] MEDS: MAGNESIUM OXIDE 400 MG TABLET PO ONE (12:21)
--- NOTE | 2024-06-25 14:45 | NUR ---
PLANTING SUPERVISOR LAB NOTE REC'D CALL FROM LAB REGARDING PCR COVID TESTED POSITIVE @ 6375. NOTIFIED DR. TORRES WITH NO NEW ORDERS AT THIS TIME. PT ALREADY ON CONTACT/DROPLET ISOLATION FOR COVID.
[2024-06-25 17:25] LABS: THYROID STIMULATING HORMONE 3.22 uIU/mL (0.358-3.74)
--- NOTE | 2024-06-25 18:40 | NUR ---
COIL BINDER CLOSING NOTE LEFT PT IN BED AWAKE. A&OX4, ABLE TO MAKE NEEDS KNOWN. DENIES ANY PAIN OR DISCOMFORT NOTED. ON ROOM AIR. TOLERATING WELL, O2 SAT > 95%.ON LINING CUTTER W/ CURRENT READING OF SR 81. IV ACCESS ON JANET #18G ML-SL; CLEAN, INTACT & PATENT. ALL DUE MEDS GIVEN ORDERED. TOLERATED WELL. PT ABLE TO AMBULATE W/ ASSIST & USES WALKER. ALL SAFETY MEASURES MAINTAINED, HEAD ELEVATED TO PT'S COMFORT, BED IN LOW POSITION & LOCKED, SIDE RAILS UP X3, BEDSIDE TABLE & CALL LIGHT W/IN EASY REACH. WILL ENDORSE TO NEXT SHIFT FOR CONTINUITY OF CARE.
--- NOTE | 2024-06-25 19:30 | NUR ---
RN OPENING NOTE RECEIVED PT IN BED. A/O X4. NO DISTRESS AND DISCOMFORT NOTED. ON ROOM AIR, NO SOB NOTED. 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 IV ACCESS JANET ML, INTACT. PT IS AMBULATORY WITH ASSIST. ALL SAFETY PRECAUTIONS IN PLACE: BED LOCKED AND IN LOWEST POSITION, SIDE RAILS UP X3, CALL LIGHT AND TABLE WITHIN REACH. WILL CONTINUE PLAN OF CARE.
--- NOTE | 2024-06-26 00:45 | NUR ---
PT REFUSED VITAL SIGNS @ 0000.
--- NOTE | 2024-06-26 03:03 | NUR ---
RECEIVE CRITICAL LAB VALUE FOR BLOOD CULTURE FOR GRAM + RODS SEEN GRAM STAIN, AEROBIC BOTTLE. [place] [facility]AN MADE AWARE. RECEIVED ORDER FOR PROCALCITONIN LAB FOR MORNING, ID CONSULT, VANCOMYCIN AND CEFEPIME 2G Q8H NOW. ORDER NOTIFIED AND CARRIED OUT.
--- NOTE | 2024-06-26 04:08 | NUR ---
PT REFUSED VITAL SIGNS @ 0400.
[2024-06-26] MEDS ORDERED: CEFEPIME 1 GM VIAL ONE (04:44)
[2024-06-26] MEDS: CEFEPIME 2 GM in IV D5W 100 ML IV ONE (04:58)
[2024-06-26] MEDS ORDERED: VANCOMYCIN 1 GM /D5W 250 ML PB IV ONE ×2 (05:02→06:12)
[2024-06-26] MEDS: VANCOMYCIN 1 GM in IV D5W 250ml IV SCH (05:03)
--- NOTE | 2024-06-26 06:32 | NUR ---
RN CLOSING NOTE PT IN BED. A/O X4. NO DISTRESS AND DISCOMFORT NOTED. ON ROOM AIR, NO SOB NOTED. 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 IV ACCESS JANET ML, INTACT. PT IS AMBULATORY WITH ASSIST. ALL DUE MEDS GIVEN. STARTED ABX PER MD ORDER. BED LOCKED AND IN LOWEST POSITION, SIDE RAILS UP X3, CALL LIGHT AND TABLE WITHIN REACH. WILL ENDORSE TO NEXT SHIFT NURSE FOR [place]RI[place].
--- NOTE | 2024-06-26 07:25 | NUR ---
PICK OUT HAND OPENING NOTE Received patient at 0700 in bed with zero s/s of distress noted, She is currently in bed with no s/s of respiratory distress. Patient is in bed resting with her eyes open she is awake, patient is A&O x4. Patient noted with JANET ML SL intact. Has all of her current needs met no further concerns noted at this time.
[2024-06-26 08:00] VITALS: BP 93/62; TEMP 97.3; O2SAT 98
[2024-06-26 10:13] LABS: FOLIC ACID 5.2 ng/mL (>3.0)
[2024-06-26] MEDS: MAGNESIUM OXIDE 400 MG TABLET PO ONE (10:28)
[2024-06-26 11:08] LABS: APPEARANCE,URINE CLEAR (CLEAR); BILIRUBIN,URINE NEGATIVE (NEGATIVE); BLOOD, URINE NEGATIVE Ery/uL (NEGATIVE); COLOR,URINE YELLOW (YELLOW); KETONES,URINE NEGATIVE (NEGATIVE); LEUKOCYTE ESTERASE ,URINE TRACE (NEGATIVE); NITRITE, URINE NEGATIVE (NEGATIVE); PH,URINE 5.5 (5.0-8.0); PROTEIN,URINE NEGATIVE (NEGATIVE); UGLUCOSE NEGATIVE (NEGATIVE); UROBILINOGEN,URINE 0.2 EU/dL (0.2)
[2024-06-26 11:09] LABS: ADD URINE CULTURE NO; BACTERIA,URINE Rare /HPF (None Seen); RBC,URINE 0-2 /HPF (0-2); SQUAMOUS EPITHELIAL CELL,UR Few /HPF (None Seen)
[2024-06-26 12:00] VITALS: BP 113/64; TEMP 97.9; O2SAT 97
[2024-06-26 16:00] VITALS: BP 83/69; TEMP 98.3; O2SAT 97
--- NOTE | 2024-06-26 19:06 | NUR ---
CERTIFIED NURSE MIDWIFE NOTE Patient is leaving AMA patient was educated to stay and she still refuses. Infection control doctor talked with her and she is still willing to leave. Patient has had all needs met, IV taken out intact no s.s of infection noted. Patient in room currently waiting for her ride.
--- NOTE | 2024-06-26 19:15 | NUR ---
LINE BUILDER NOTE Patient was endorsed to [facility], she is waiting for family to pick her up.
--- NOTE | 2024-06-26 19:28 | NUR ---
PT LEFT HOSPITAL AND SIGNED AMA IN PREVIOUS SHIFT. PREVIOUS SHIFT NURSE REMOVED IV ACCESS. ALL PAPER WORKS DONE AND SIGNED BY PT IN PREVIOUS SHIFT. PT BROTHER PICKED HER UP. PT LEFT HOSPITAL @ 1928.
[2024-06-26] MEDS ORDERED: CEFEPIME 2 GM in IV D5W 100 ML IV SCH (21:00)
[2024-06-26] MEDS ORDERED: CEFEPIME 1 GM in IV D5W 50 ML IV SCH (21:00)
[2024-06-27] MEDS ORDERED: VANCOMYCIN 1.5 GM in IV D5W 500 ML IV SCH (05:00)
== END 2024-06-26 20:13 | disposition left against medical advice (07) | DRG 280 ==
LOC: ER 08:14 → TELE1 10:09
PROVIDERS: ADMIT Internal Medicine; ATTEND Internal Medicine
DX: I48.91 Unspecified atrial fibrillation (principal); R53.2 Functional quadriplegia; I21.4 Non-ST elevation (NSTEMI) myocardial infarction; N39.0 Urinary tract infection, site not specified; R78.81 Bacteremia; Z68.42 Body mass index [BMI] 45.0-49.9, adult; E87.20 Acidosis, unspecified; I12.9 Hypertensive chronic kidney disease with stage 1 through stage 4 chronic kidney disease, or unspecified chronic kidney disease; Z98.84 Bariatric surgery status; Z91.199 Patient's noncompliance with other medical treatment and regimen due to unspecified reason; Z90.5 Acquired absence of kidney; Z90.49 Acquired absence of other specified parts of digestive tract; G89.29 Other chronic pain; N18.30 Chronic kidney disease, stage 3 unspecified; Z87.442 Personal history of urinary calculi; Z86.19 Personal history of other infectious and parasitic diseases; Z79.899 Other long term (current) drug therapy; Z79.890 Hormone replacement therapy; Z79.82 Long term (current) use of aspirin; Z53.29 Procedure and treatment not carried out because of patient's decision for other reasons; M89.8X9 Other specified disorders of bone, unspecified site; B96.89 Other specified bacterial agents as the cause of diseases classified elsewhere; D64.9 Anemia, unspecified; Z86.73 Personal history of transient ischemic attack (TIA), and cerebral infarction without residual deficits; E66.01 Morbid (severe) obesity due to excess calories; Z82.49 Family history of ischemic heart disease and other diseases of the circulatory system; Z85.038 Personal history of other malignant neoplasm of large intestine; M51.36 Other intervertebral disc degeneration, lumbar region; M48.061 Spinal stenosis, lumbar region without neurogenic claudication; M19.90 Unspecified osteoarthritis, unspecified site; G43.109 Migraine with aura, not intractable, without status migrainosus; E83.42 Hypomagnesemia; F32.9 Major depressive disorder, single episode, unspecified; F41.9 Anxiety disorder, unspecified; M71.9 Bursopathy, unspecified
CPT/HCPCS: 36415; 70450-TC; 71045-TC; 72131-TC; 80048-TC; 80053-TC; 80061-TC; 80076-TC; 81001; 82607-TC; 83605-TC; 83735-TC; 83921; 84100-TC; 84439-TC; 84443-TC; 84481; 84484-TC; 85025-TC; 85730-TC; 87040-TC; 87086-TC; 97110-TC; 97112-TC; 97116-TC; 97530-TC; A4223; G0378; G0480; J0692; J0696; J2405; J3370; J3371; J3490; J7030; J7050; J7060

== ENCOUNTER 2024-07-11 18:52 | Inpatient (IN) | payer BC ==
[~2024-07-11] VITALS: Ht 182.9 cm; Wt 147.0 kg
[~2024-07-11 18:52] MED LIST changes: +ALLO100T PO; +AMIT10TA6 PO; -AMLO-212 PO; -ASPI-1169 PO; -BUPR-319 PO; +BUPR-96 PO; -CHOL100044 PO; +CHOL12502 PO; -CYCL10TA9 PO; -DOCU100C36 PO; +FLEC50TA2 PO; -HYDR-3980 PO; -HYDR-4075 PO; -HYDR12.55 PO; +METO-357 PO; -METO50TA7 PO; +NIFE60TA73 PO; -OLAN7.5T3 PO; -ONDA4TAB5 PO; +OXYC20TA42 PO; +RIVA10TA PO; +SEMA1PEN SQ; +SPIR25TA6 PO; -SUMA100T PO; -TIZA4TAB5 PO; -TRAZ-182 PO
[2024-07-11 20:59] LABS: BASOPHILS % (AUTO) 0.4 % (0.0-2.0); EOSINOPHILS # (AUTO) 0.1 K/uL (0.0-0.7); EOSINOPHILS % (AUTO) 0.7 % (0.0-6.0); HEMATOCRIT 47 % (33-45); HEMOGLOBIN 14.7 g/dL (11.5-14.8); LYMPHOCYTES % (AUTO) 18.3 % (20.0-44.0); MEAN CORPUSCULAR HEMOGLOBIN 30 PG (26.0-33.0); MEAN CORPUSCULAR HGB CONC 32 g/dl (31.0-36.0); MEAN CORPUSCULAR VOLUME 94 fL (82-100); MONOCYTES # (AUTO) 0.8 K/uL (0.1-1.30); MONOCYTES % (AUTO) 7.1 % (2.0-12.0); NEUTROPHILS # (AUTO) 8.1 K/uL (1.8-8.9); NEUTROPHILS % (AUTO) 73.5 % (43.0-81.0); PLATELET COUNT (AUTO) 288 K/uL (150-450); RED BLOOD CELL COUNT(AUTO) 4.96 MIL/uL (4.0-5.2); RED CELL DISTRIBUTION WIDTH 15.2 % (11.5-15.0)
[2024-07-11 21:28] LABS: MAGNESIUM 1.7 mg/dL (1.8-2.4)
[2024-07-11 21:29] LABS: CALCIUM, SERUM 10.4 mg/dL (8.5-10.1); CARBON DIOXIDE 21 mmol/L (21-32); CHLORIDE 105 mmol/L (98-107); CREATININE 1.9 mg/dL (0.6-1.3); GLUCOSE 75 mg/dL (74-106); SODIUM SERUM 142 mmol/L (136-145); THYROID STIMULATING HORMONE 2.08 uIU/mL (0.358-3.74); UREA NITROGEN, BLOOD 18 mg/dL (7-18)
[2024-07-11 21:32] LABS: ALANINE AMINOTRANSFERASE 18 U/L (12-78); ALKALINE PHOSPHATASE 220 U/L (46-116); ASPARTATE AMINOTRANSFERASE 17 U/L (15-37); BILIRUBIN,DIRECT 0.1 mg/dL (0.0-0.2); BILIRUBIN,TOTAL 0.5 mg/dL (0.2-1.0); TOTAL PROTEIN, SERUM 8.4 g/dL (6.4-8.2)
[2024-07-11 21:38] LABS: INR 1.07 (0.91-1.10); PARTIAL THROMBOPLASTIN TIME 21.1 SEC (24.3-34.3); PROTHROMBIN TIME 11.3 SECS (9.2-11.1)
[2024-07-11] MEDS ORDERED: Z GUARD REMEDY 4 OZ OINT TP PRN (23:30)
[2024-07-11] MEDS ORDERED: MAGNESIUM HYDROXIDE 30 ML UDC PO PRN (23:30)
[2024-07-11] MEDS ORDERED: MAG HYDROX/AL HYDROX/SIMETH 30 ML UDC PO PRN (23:30)
[2024-07-11] MEDS ORDERED: METOPROLOL TARTRATE INJ 5 MG/5 ML AMPUL ONE (23:38)
[2024-07-11] MEDS: METOPROLOL TARTRATE INJ 5 MG/5 ML AMPUL IV PRN (23:50)
[2024-07-12] MEDS ORDERED: METOPROLOL TARTRATE INJ 5 MG/5 ML AMPUL ONE ×3 (00:05→01:06)
[2024-07-12 00:36] LABS: APPEARANCE,URINE CLEAR (CLEAR); BILIRUBIN,URINE NEGATIVE (NEGATIVE); BLOOD, URINE NEGATIVE Ery/uL (NEGATIVE); COLOR,URINE YELLOW (YELLOW); KETONES,URINE TRACE mg/dL (NEGATIVE); LEUKOCYTE ESTERASE ,URINE NEGATIVE (NEGATIVE); NITRITE, URINE NEGATIVE (NEGATIVE); PROTEIN,URINE NEGATIVE (NEGATIVE); UGLUCOSE NEGATIVE (NEGATIVE); UROBILINOGEN,URINE 0.2 EU/dL (0.2)
[2024-07-12 00:41] LABS: ADD URINE CULTURE NO; BACTERIA,URINE Rare /HPF (None Seen); SQUAMOUS EPITHELIAL CELL,UR Few /HPF (None Seen); WBC,URINE 0-2 /HPF (0-3)
[2024-07-12 00:50] LABS: AMPHETAMINE, URINE NEGATIVE (NEGATIVE); BARBITURATE, URINE NEGATIVE (NEGATIVE); BENZODIAZEPINE, URINE NEGATIVE (NEGATIVE); CANNABINOID, URINE NEGATIVE (NEGATIVE); COCCAINE, URINE NEGATIVE (NEGATIVE); PHENCYCLIDINE SCREEN,URINE NEGATIVE (NEGATIVE)
[2024-07-12 00:52] LABS: OPIATE, URINE POSITIVE (NEGATIVE)
[2024-07-12] MEDS ORDERED: AMIODARONE 150 MG/3 ML VIAL IV ONE ×2 (01:15→01:42)
[2024-07-12] MEDS: AMIODARONE 150 MG in IV D5W 100 ML IV ONE (01:30)
[2024-07-12] MEDS: AMIODARONE 450 MG in IV D5W 241 ML IV PRN (02:33)
[2024-07-12 03:10] VITALS: BP 144/127; TEMP 98.1; O2SAT 100
[2024-07-12] MEDS ORDERED: Magnesium 1GM/D5W 100ML PREMIX 100 ML IV ONE (03:53)
[2024-07-12] MEDS: Magnesium 1GM/D5W 100ML PREMIX PIGGYBACK IV ONE (03:54)
[2024-07-12 04:00] VITALS: BP 140/97; TEMP 98.6; O2SAT 100
[2024-07-12] MEDS: ACETAMINOPHEN 325 MG TABLET PO PRN (05:13)
[2024-07-12 06:08] LABS: BASOPHILS % (AUTO) 0.4 % (0.0-2.0); EOSINOPHILS # (AUTO) 0.1 K/uL (0.0-0.7); EOSINOPHILS % (AUTO) 1.4 % (0.0-6.0); HEMATOCRIT 40 % (33-45); HEMOGLOBIN 12.8 g/dL (11.5-14.8); LYMPHOCYTES # (AUTO) 2.2 K/uL (0.8-4.8); LYMPHOCYTES % (AUTO) 22.8 % (20.0-44.0); MEAN CORPUSCULAR HEMOGLOBIN 30 PG (26.0-33.0); MEAN CORPUSCULAR HGB CONC 32 g/dl (31.0-36.0); MEAN CORPUSCULAR VOLUME 93 fL (82-100); MONOCYTES # (AUTO) 0.8 K/uL (0.1-1.30); MONOCYTES % (AUTO) 8.5 % (2.0-12.0); NEUTROPHILS # (AUTO) 6.6 K/uL (1.8-8.9); NEUTROPHILS % (AUTO) 66.9 % (43.0-81.0); PLATELET COUNT (AUTO) 269 K/uL (150-450); RED BLOOD CELL COUNT(AUTO) 4.27 MIL/uL (4.0-5.2); RED CELL DISTRIBUTION WIDTH 15.3 % (11.5-15.0); WHITE BLOOD COUNT (AUTO) 9.9 K/uL (4.3-11.0)
[2024-07-12 06:30] LABS: CALCIUM, SERUM 9.5 mg/dL (8.5-10.1); CREATININE 1.8 mg/dL (0.6-1.3); MAGNESIUM 1.8 mg/dL (1.8-2.4); POTASSIUM 3.9 mmol/L (3.5-5.1)
[2024-07-12 08:00] VITALS: BP 147/106; TEMP 98.1; O2SAT 97
[2024-07-12] MEDS ORDERED: SODI650T PO (08:10)
[2024-07-12] MEDS ORDERED: DAPA5TAB PO (08:10)
[2024-07-12] MEDS ORDERED: SUMA100T PO (08:10)
[2024-07-12] MEDS ORDERED: DOXY100C2 PO (08:10)
[2024-07-12] MEDS: LEVOTHYROXINE SODIUM 25 MCG TABLET PO SCH (08:27)
[2024-07-12] MEDS: FERROUS SULFATE (325 MG) 325 MG/TAB TABLET PO SCH (08:27)
[2024-07-12] MEDS: SPIRONOLACTONE 25 MG TABLET PO SCH (08:27)
[2024-07-12] MEDS: BUPROPION XL 150 MG TAB.ER.24 PO SCH (08:28)
[2024-07-12] MEDS: VENLAFAXINE XR 75 MG CAP.SR.24H PO SCH (08:28)
[2024-07-12] MEDS: METOPROLOL SUCCINATE 50 MG TAB.SR.24H PO SCH (08:28)
[2024-07-12] MEDS: ALLOPURINOL 100 MG TABLET PO SCH (08:28)
[2024-07-12] MEDS: NIFEDIPINE XL 60 MG TAB.ER.24 PO SCH (08:28)
[2024-07-12] MEDS: oxyCODONE IR immediate release 5 MG TABLET PO SCH (08:29)
[2024-07-12] MEDS: PANTOPRAZOLE 40 MG VIAL IV SCH (08:29)
[2024-07-12] MEDS: RIVAROXABAN 10 MG TABLET PO SCH (08:30)
[2024-07-12] MEDS ORDERED: FLECAINIDE ACETATE 50 MG TABLET PO SCH (09:00)
[2024-07-12 10:22] LABS: THYROID STIMULATING HORMONE 2.29 uIU/mL (0.358-3.74)
[2024-07-12] MEDS: ONDANSETRON HCL/PF 4 MG/2 ML VIAL IVP PRN (11:31)
[2024-07-12] MEDS: SUMATRIPTAN SUCCINATE 100 MG TABLET PO ONE (14:22)
[2024-07-12 16:00] VITALS: BP 119/72; TEMP 98.2; O2SAT 97
[2024-07-12 20:00] VITALS: BP 117/83; TEMP 97.8; O2SAT 100
[2024-07-12] MEDS: AMITRIPTYLINE HCL 10 MG TABLET PO SCH (21:04)
[2024-07-12] MEDS: ATORVASTATIN 40 MG TABLET PO SCH (21:04)
[2024-07-13] VITALS: BP 121/80; TEMP 98.1; O2SAT 98
[2024-07-13 04:00] VITALS: BP 112/78; TEMP 98; O2SAT 98
[2024-07-13] MEDS: ERGOCALCIFEROL (VITAMIN D 2) 50,000 UNIT CAPSULE PO SCH (07:54)
[2024-07-13 08:00] VITALS: BP 107/73; TEMP 97.5; O2SAT 99
[2024-07-13] MEDS: ASPIRIN EC 81 MG TABLET.DR PO SCH (09:01)
[2024-07-13] MEDS: AMIODARONE HCL 200 MG TABLET PO SCH (09:01)
[2024-07-13] MEDS: PANTOPRAZOLE 40 MG TABLET.DR PO SCH (09:02)
[2024-07-13] MEDS ORDERED: AMIO200T7 PO (09:20)
[2024-07-13 12:00] VITALS: BP 113/72; TEMP 98.2; O2SAT 96
[2024-07-13] MEDS: MECLIZINE HCL 12.5 MG TABLET PO PRN (13:16)
[2024-07-13 16:00] VITALS: TEMP 98.2; O2SAT 96
[2024-07-13] MEDS: oxyCODONE IR immediate release 5 MG TABLET PO ONE (23:37)
[2024-07-14 01:10] LABS: FOLIC ACID 3.5 ng/mL (>3.0)
[2024-07-14 08:00] VITALS: BP 105/79; TEMP 98.4; O2SAT 100
[2024-07-14 08:34] VITALS: BP 105/79
[2024-07-14] MEDS ORDERED: AMIO200T7 PO (09:57)
== END 2024-07-14 13:46 | disposition home or self-care (01) | DRG 74 ==
LOC: ER 18:56 → TELE1 07-12 01:37 → TELE-TD 07-12 01:44
PROVIDERS: ATTEND Internal Medicine
DX: G90.8 Other disorders of autonomic nervous system (principal); I48.92 Unspecified atrial flutter; N17.9 Acute kidney failure, unspecified; N18.4 Chronic kidney disease, stage 4 (severe); Z68.41 Body mass index [BMI] 40.0-44.9, adult; E83.42 Hypomagnesemia; I12.9 Hypertensive chronic kidney disease with stage 1 through stage 4 chronic kidney disease, or unspecified chronic kidney disease; Z79.899 Other long term (current) drug therapy; E78.5 Hyperlipidemia, unspecified; Z79.01 Long term (current) use of anticoagulants; Z90.5 Acquired absence of kidney; Z98.84 Bariatric surgery status; Z91.81 History of falling; Z86.73 Personal history of transient ischemic attack (TIA), and cerebral infarction without residual deficits; G89.29 Other chronic pain; F32.A Depression, unspecified; Z79.890 Hormone replacement therapy; I48.91 Unspecified atrial fibrillation; M89.8X9 Other specified disorders of bone, unspecified site; Z82.49 Family history of ischemic heart disease and other diseases of the circulatory system; M48.00 Spinal stenosis, site unspecified; Z87.440 Personal history of urinary (tract) infections; Z91.199 Patient's noncompliance with other medical treatment and regimen due to unspecified reason; Z90.49 Acquired absence of other specified parts of digestive tract; E66.01 Morbid (severe) obesity due to excess calories; Z79.891 Long term (current) use of opiate analgesic; Z87.442 Personal history of urinary calculi; G43.809 Other migraine, not intractable, without status migrainosus
CPT/HCPCS: 36415; 70450-TC; 70486-TC; 71045-TC; 72125-TC; 73060-TC; 80048-TC; 80061-TC; 80076-TC; 81001; 82607-TC; 83735-TC; 83880; 83921; 84100-TC; 84425; 84439-TC; 84443-TC; 84484-TC; 85025-TC; 85730-TC; 87086-TC; 93307-TC; 93880-TC; 97110-TC; 97112-TC; 97530-TC; A4223; G0378; J0282; J2405; J2470; J3475; J3490; J7030; J7050; J7060; J8597